=== PATIENT | female | born 1985 | race Two or more races ===

== ENCOUNTER 2017-02-05 00:32 | Emergency (ER) | payer OTHER ==
[~2017-02-05] VITALS: Ht 157.5 cm; Wt 85.2 kg
[~2017-02-05 00:32] MED LIST: AZIT250T PO; DAYQUIL; DICY20TA3 PO; GUAI600T38 PO; PRED20TA PO; PRED50TA PO; SIME80TA14 PO
--- NOTE | 2017-02-05 00:55 | PHYS DOC ---
Past History Past Medical History: No Pertinent History Past Surgical History: Tubal ligation, Other Smoking: Cigarettes Alcohol Use: None Drug Use: None Adult General Chief Complaint Chief Complaint: BODY/HEAD LICE HPI HPI 31-year-old female states she fell tonight and hit her head. She denies any loss of consciousness. She has does have a mild headache now but no lateralizing neurologic weakness. She states this happened approximately 4 hours prior to arrival. She denies any neck pain or radicular symptoms. [] Review of Systems Review of Systems Constitutional: Denies fever or chills [] Eyes: Denies change in visual acuity, redness, or eye pain [] HENT: Denies nasal congestion or sore throat [] Respiratory: Denies cough or shortness of breath [] Cardiovascular: No additional information not addressed in HPI [] GI: Denies abdominal pain, nausea, vomiting, bloody stools or diarrhea [] : Denies dysuria or hematuria [] Musculoskeletal: Denies back pain or joint pain [] Integument: Denies rash or skin lesions [] Neurologic: Per history of present illness [] Endocrine: Denies polyuria or polydipsia [] Allergies Allergies Allergies Coded Allergies Type Severity Reaction Last Updated Verified aspirin Allergy Severe SWELL 08/29/15 Yes ibuprofen Allergy Severe SWELL 08/29/15 Yes ketorolac Allergy Severe SWELL 08/29/15 Yes naproxen Allergy Severe SWELL 08/29/15 Yes fentanyl Allergy Intermediate itching 10/15/16 Yes kiwi Allergy Intermediate Itching 04/23/16 Yes Physical Exam Physical Exam Constitutional: Well developed, well nourished, no acute distress, non-toxic appearance. [] HENT: Mild tenderness left temporal region no swelling no ecchymosis no erythema no abrasion no laceration. [] Eyes: PERRLA, EOMI, conjunctiva normal, no discharge. [] Neck: Normal range of motion, no tenderness, supple, no stridor. [] Cardiovascular:Heart rate regular rhythm, no murmur [] Lungs & Thorax: Bilateral breath sounds clear to auscultation [] Abdomen: Bowel sounds normal, soft, no tenderness, no masses, no pulsatile masses. [] Skin: Warm, dry, no erythema, no rash. [] Back: No tenderness, no CVA tenderness. [] Extremities: No tenderness, no cyanosis, no clubbing, ROM intact, no edema. [] Neurologic: Alert and oriented X 3, normal motor function, normal sensory function, no focal deficits noted. [] Psychologic: Anxious. [] EKG EKG [] Radiology/Procedures Radiology/Procedures [] Course & Med Decision Making Course & Med Decision Making Pertinent Labs and Imaging studies reviewed. (See chart for details) [] Dragon Disclaimer Dragon Disclaimer This chart was dictated in whole or in part using Voice Recognition software in a busy, high-work load, and often noisy Emergency Department environment. It may contain unintended and wholly unrecognized errors or omissions. Departure Departure: Impression: Primary Impression: Head contusion Disposition: HOME, SELF-CARE Condition: STABLE Referrals: MOISÉS CARMEN (PCP) Patient Instructions: Head Injury, Adult Additional Instructions: Return to emergency department with any new or concerning symptoms Problem Qualifiers Primary Impression: Head contusion Encounter type: initial encounter Contusion of head detail: scalp Qualified Code: S00.03XA - Contusion of scalp, initial encounter RAFAELA DIAMOND DO Feb 05, 2017 00:55
[2017-02-05 01:30] VITALS: BP 132/82
== END 2017-02-05 01:30 | disposition home or self-care (01) ==
LOC: ER 00:32
DX: S00.83XA Contusion of other part of head, initial encounter (principal); F17.210 Nicotine dependence, cigarettes, uncomplicated; Z88.6 Allergy status to analgesic agent; Z88.8 Allergy status to other drugs, medicaments and biological substances; Z91.018 Allergy to other foods; W18.00XA Striking against unspecified object with subsequent fall, initial encounter; Y93.89 Activity, other specified; Y99.8 Other external cause status; Y92.89 Other specified places as the place of occurrence of the external cause
CPT/HCPCS: 99281; 99283

== ENCOUNTER 2017-04-08 13:18 | Emergency (ER) | payer OTHER ==
[~2017-04-08] VITALS: Ht 157.5 cm; Wt 85.2 kg
[~2017-04-08 13:18] MED LIST changes: -GUAI600T38 PO; +GUAI600T47 PO
[2017-04-08 13:20] VITALS: BP 132/82
--- NOTE | 2017-04-08 13:34 | PHYS DOC ---
General Chief Complaint: CHEST PAIN Stated Complaint: WEAKNESS Time Seen by MD: 13:19 Source: patient Exam Limitations: clinical condition Problems: History of Present Illness Initial Comments Pt is 31/F to ED with multiple complaints. Pt has history of Conversion disorder diagnosis, has seen two Neurologists no psychiatry evaluation. Pt states she had sudden worsening of her tremor, chest/back/arm/leg pain which starts in her spine then explodes outwardly to all her extremities. She thinks she may have been around too many people at [employer] today and became overwhelmed. Was having cp/sob, those sx now gone. Pt develops new complaints as others resolve quickly during our interview. Timing/Duration: 1-3 hours Severity: severe Modifying Factors: improves with other Associated Symptoms: chest pain, headaches, loss of appetite, malaise, nausea/ vomiting, shortness of breath, weakness, other Allergies: Coded Allergies: aspirin (Verified Allergy, Severe, SWELL, 08/29/15) ibuprofen (Verified Allergy, Severe, SWELL, 08/29/15) ketorolac (Verified Allergy, Severe, SWELL, 08/29/15) naproxen (Verified Allergy, Severe, SWELL, 08/29/15) fentanyl (Verified Allergy, Intermediate, itching, 10/15/16) kiwi (Verified Allergy, Intermediate, Itching, 04/23/16) Past Medical History Medical History: other (conversion disorder, migraine, asthma) Surgical History: noncontributory Social History Smoker: cigarettes Alcohol: none Drugs: none Review of Systems Constitutional: denies chills, denies diaphoresis, denies fever, malaise, weakness Respiratory: see HPI Cardiovascular: see HPI Gastrointestinal: see HPI Genitourinary: see HPI Musculoskeletal: see HPI Psychiatric/Neurological: see HPI Physical Exam General Appearance: WD/WN, severe distress (very dramatic, shaking, ) Eyes: bilateral eye normal inspection, bilateral eye PERRL, bilateral eye EOMI Ear, Nose, Throat: hearing grossly normal, normal ENT inspection, normal pharynx Neck: non-tender, supple Respiratory: normal breath sounds, no respiratory distress Cardiovascular: normal peripheral pulses, regular rate, rhythm Gastrointestinal: non tender, soft Back: no CVA tenderness, no vertebral tenderness Extremities: non-tender, normal inspection 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 PHYSICIAN: ONELIA MENDEZ DO REASON: cp PROCEDURE: PORTABLE CHEST 1V EXAM: CHEST 1 VIEW History: Chest pain COMPARISON: 10/15/2016 TECHNIQUE: Single portable radiograph of the chest FINDINGS: The cardiac silhouette is unremarkable. The lungs are clear bilaterally. The costophrenic sulci are clear and well demarcated. IMPRESSION: No radiographic evidence of an acute cardiopulmonary process. DICTATED AND SIGNED BY: ZAIRA LEWIS MD DATE: 04/08/17 1430 CC: MOISÉS CARMEN; ONELIA MENDEZ DO ~ K+ 3.4, UA +SE contamination, Advised to stop smoking. Overall reassuring workup. Pt did calm down. Resistant to psychiatry follow up , but did express understanding of treatment plan. Departure Time of Disposition: 16:42 Disposition: 01 HOME, SELF-CARE Diagnosis: conversion disorder, hypokalemia, UTI Condition: GOOD Patient Instructions: Conversion Disorder, Hypokalemia-Brief, Urinary Tract Infection, Iika-sg-Pwdy Additional Instructions: Work excuse a few days if needed. Aggressive hydration with gatorade, water. Eat one banana twice daily until doctor follow up. Rx: cipro, pyridium Take meds with food. You will need to follow up with psychiatry next available appointment for further mental health evaluation and treatment. The [address] [address] They have daily morning walk-in hours available or you may choose to call to schedule. Return to ED with new or changing symptoms. ONELIA MENDEZ DO April 08, 2017 13:34
[2017-04-08 14:02] LABS: BACTERIA,URINE FEW /HPF (0-FEW); BARBITURATES NEG (NEG); BENZODIAZEPINES NEG (NEG); BILIRUBIN,URINE NEG (NEG); CANNABINOIDS NEG (NEG); CLARITY,URINE CLOUDY; COCAINE NEG (NEG); COLOR,URINE YELLOW; GLUCOSE,URINE NEG (NEG); METHADONE NEG (NEG); NITRITE,URINE NEG (NEG); OPIATES POS (NEG); PHENCYCLIDINE NEG (NEG); UROBILINOGEN,URINE 0.2 mg/dL (0.2 mg/dL)
[2017-04-08 14:03] LABS: HYALINE CASTS, URINE OCC /HPF; SQUAMOUS EPITHELIAL CELL,UR MANY /LPF
[2017-04-08 14:12] LABS: AMPHETAMINE/METHAMPHETAMINE NEG (NEG)
--- NOTE | 2017-04-08 14:19 | EKG ---
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
--- NOTE | 2017-04-08 14:34 | RAD ---
EXAM: CHEST 1 VIEW History: Chest pain COMPARISON: 10/15/2016 TECHNIQUE: Single portable radiograph of the chest FINDINGS: The cardiac silhouette is unremarkable. The lungs are clear bilaterally. The costophrenic sulci are clear and well demarcated. IMPRESSION: No radiographic evidence of an acute cardiopulmonary process.
[2017-04-08] MEDS ORDERED: IV NORMAL SALINE 1,000ML 1,000 ML IV SCH (14:35)
[2017-04-08] MEDS ORDERED: LORazepam 2 MG/ML VIAL IV ONE (14:35)
[2017-04-08] MEDS ORDERED: diphenhydrAMINE 50 MG/ML VIAL ONE (15:15)
[2017-04-08 16:09] LABS: BASO # 0.1 x10^3/uL (0.0-0.2); BASO % 1 % (0-3); EOS # 0.2 x10^3/uL (0.0-0.7); EOS % 3 % (0-3); HEMATOCRIT 38.5 % (36.0-47.0); HEMOGLOBIN 13.1 g/dL (12.0-15.5); LYMPH # 2.1 x10^3/uL (1.0-4.8); LYMPH % 26 % (24-48); MEAN CORPUSCULAR HEMOGLOBIN 30 pg (25-35); MEAN CORPUSCULAR HGB CONC 34 g/dL (31-37); MEAN CORPUSCULAR VOLUME 89 fL (79-100); MONO # 0.5 x10^3/uL (0.0-1.1); MONO % 6 % (0-9); NEUT # 5.1 x10^3uL (1.8-7.7); NEUT % 64 % (31-73); PLATELET COUNT 186 x10^3/uL (140-400); RED BLOOD COUNT 4.34 x10^6/uL (3.50-5.40); RED CELL DISTRIBUTION WIDTH 13.4 % (11.5-14.5)
[2017-04-08 16:24] LABS: ALBUMIN 3.5 g/dL (3.4-5.0); CALCIUM 8.2 mg/dL (8.5-10.1); GFR 65.6; MAGNESIUM 1.9 mg/dL (1.8-2.4); POTASSIUM 3.4 mmol/L (3.5-5.1); TOTAL BILIRUBIN 0.2 mg/dL (0.2-1.0)
[2017-04-08] MEDS ORDERED: PHEN100T82 PO (16:50)
[2017-04-08] MEDS ORDERED: CIPR500T94 PO (16:50)
[2017-04-08] MEDS ORDERED: POTASSIUM CHLORIDE 20 MEQ TABLET.ER. PO ONE (17:00)
[2017-04-08] MEDS ORDERED: PHENAZOPYRIDINE 100 MG TABLET. PO ONE (17:00)
[2017-04-08] MEDS ORDERED: CIPROFLOXACIN HCL 500 MG TABLET PO ONE (17:00)
== END 2017-04-08 16:50 | disposition home or self-care (01) ==
LOC: ER 13:18
DX: F44.4 Conversion disorder with motor symptom or deficit (principal); N39.0 Urinary tract infection, site not specified; E87.6 Hypokalemia; F17.210 Nicotine dependence, cigarettes, uncomplicated; J45.909 Unspecified asthma, uncomplicated; G43.909 Migraine, unspecified, not intractable, without status migrainosus; Z88.6 Allergy status to analgesic agent; Z88.8 Allergy status to other drugs, medicaments and biological substances; Z91.018 Allergy to other foods
CPT/HCPCS: 36415; 71010; 80053; 80305; 80320; 81001; 82550; 83735; 84484; 85027; 87086; 93005; 96361; 96374; 99285; J2060; G0480; G0481; J7030

== ENCOUNTER 2017-09-24 08:53 | Emergency (ER) | payer OTHER ==
[~2017-09-24 08:53] MED LIST changes: +CIPR500T94 PO; +PHEN100T82 PO
--- NOTE | 2017-09-24 09:27 | PHYS DOC ---
General Chief Complaint: BACK PAIN OR INJURY Stated Complaint: BACK PAIN Time Seen by MD: 08:54 Source: patient, old records Exam Limitations: no limitations Problems: History of Present Illness Initial Comments Patient is a 32-year-old female well-known to this facility with report of fall injury. Patient states that last night she fell backwards due to "yelling at my son" stating that she hit the back of her head on the ground causing pain at her posterior occiput. She denies any loss of consciousness no nausea vomiting, states she did have some photophobia and blurred vision. She states that today her head pain is worse and states that today she has discomfort ranging from the bottom of her head down to the bottom of her spine. She says she has pain running down her posterior left leg. She was observed by registration to ambulate without difficulty from the parking lot up to the registration desk. At the registration desk she reported that she was unable to walk with leg weakness and a wheelchair was procured for her use. PCP is Lu Toro, patient states that she called her office and was referred to the emergency Department due to the nature of her complaints. Occurred: yesterday Severity: severe Injuries/Pain Location: head, neck, back Context: other Loss of Consciousness: no loss of consciousness Modifying Factors: worse with jarring, worse with movement, improves with pain medication, improves with rest Associated Symptoms: headache, trouble walking, other Allergies: Coded Allergies: aspirin (Verified Allergy, Severe, SWELL, 08/29/15) ibuprofen (Verified Allergy, Severe, SWELL, 08/29/15) ketorolac (Verified Allergy, Severe, SWELL, 08/29/15) naproxen (Verified Allergy, Severe, SWELL, 08/29/15) fentanyl (Verified Allergy, Intermediate, itching, 10/15/16) kiwi (Verified Allergy, Intermediate, Itching, 04/23/16) Past Medical History Medical History: other (conversion disorder, migraines, asthma, gestational diabetes, GERD) Surgical History: noncontributory LMP (Females 10-50): September 14 Social History Smoker: cigarettes Alcohol: none Drugs: none Review of Systems Constitutional: denies chills, denies diaphoresis, denies fever, malaise Eyes: denies blindness, blurred vision, denies inflammation, denies photophobia Ears, Nose, Mouth, Throat: denies ear discharge, denies nose discharge, denies epistaxis Respiratory: denies cough, denies shortness of breath, denies wheezing Cardiovascular: denies chest pain, denies palpitations, denies syncope Gastrointestinal: denies abdominal pain, denies nausea, denies vomiting Musculoskeletal: see HPI Psychiatric/Neurological: see HPI Physical Exam General Appearance: no apparent distress (very dramatic) Head: no evidence of injury (normocephalic atraumatic negative Villeda sign negative raccoon eyes no evidence of trauma) Eyes: bilateral eye normal inspection, bilateral eye PERRL, bilateral eye EOMI Ears, Nose, Mouth, Throat: hearing grossly normal, no evidence of ENT injury, no dental injury (no ear or nose discharge no fluid behind TMs bilaterally) Neck: full range of motion (diffuse lateral and midline tenderness no palpable deformity) Cardiovascular/Respiratory: normal peripheral pulses, normal breath sounds, no respiratory distress Gastrointestinal: non tender, soft Back: normal inspection, no CVA tenderness, no vertebral tenderness Extremities: no evidence of injury, normal range of motion, non-tender, pelvis stable 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 PHYSICIAN: ONELIA MENDEZ DO REASON: fall to occiput, head/neck pain PROCEDURE: CT HEAD AND CERVICAL SPINE WO CT of the head without contrast, 09/24/2017: History: Fall, head and neck pain Noncontrast scans were obtained and compared to a study from 03/12/2016. The ventricles are within normal limits in size. There is no shift of the midline structures. There is no evidence of acute intracranial hemorrhage or mass effect. IMPRESSION: The CT of the head without contrast reveals no significant abnormality. CT of the cervical spine without contrast, 09/24/2017: No fracture or dislocation is identified. There are minimal scattered marginal spurs. The posterior disc margins are poorly delineated due to artifacts. No significant bony central spinal or foraminal stenosis is identified. IMPRESSION: No acute cervical spine abnormality is detected. PQRS Compliance Statement: One or more of the following individualized dose reduction techniques were utilized for this examination: 1. Automated exposure control 2. Adjustment of the mA and/or kV according to patient size 3. Use of iterative reconstruction technique DICTATED AND SIGNED BY: CARMEN GIFFORD MD DATE: 09/24/17 1013 CC: MOISÉS CARMEN; ONELIA MENDEZ DO ~ Labs unremarkable I contacted Lu Toro by phone and discussed the patient with her at length. She is in agreement symptoms likely from her conversion disorder. I discussed the treatment plan she is in agreement and will see the patient in follow-up tomorrow. I discussed this with the patient and her mother, specifically that no acute cause for her symptoms which started at the registration desk were evident from today's evaluation. I discussed prescription and [id number] medications and close outpatient follow-up. She expressed agreement and understanding. Departure Time of Disposition: 10:55 Disposition: 01 HOME, SELF-CARE Diagnosis: concussion, fall, strain, conversion disorder Condition: GOOD Patient Instructions: Cervical Strain and Sprain with Rehab-SportsMed, Concussion and Brain Injury, [id number] Additional Instructions: No exercise or strenuous activity until cleared by your doctor. Aggressive hydration with Gatorade and water. After 48 hours began using heating pad 15-20 minutes at a time 4-6 times daily followed by gentle stretching. Continue current medications. Kzpw-vho-[id number] Tylenol as needed for baseline discomfort. Prescription: [place] 5 mg quantity 5 (do not take with Tylenol) Follow-up with your doctor on Sunday for recheck and further activity restriction modifications. Return to ED with new or changing symptoms. ONELIA MENDEZ DO Sep 24, 2017 09:27
[2017-09-24] MEDS ORDERED: ACETAMINOPHEN 325 MG TABLET PO ONE (09:30)
[2017-09-24 09:54] LABS: BASO # 0.1 x10^3/uL (0.0-0.2); BASO % 1 % (0-3); EOS # 0.3 x10^3/uL (0.0-0.7); EOS % 4 % (0-3); HEMATOCRIT 43.7 % (36.0-47.0); HEMOGLOBIN 14.9 g/dL (12.0-15.5); LYMPH # 2.1 x10^3/uL (1.0-4.8); LYMPH % 30 % (24-48); MEAN CORPUSCULAR HEMOGLOBIN 30 pg (25-35); MEAN CORPUSCULAR HGB CONC 34 g/dL (31-37); MEAN CORPUSCULAR VOLUME 89 fL (79-100); MONO # 0.4 x10^3/uL (0.0-1.1); MONO % 6 % (0-9); NEUT # 4.1 x10^3uL (1.8-7.7); NEUT % 59 % (31-73); PLATELET COUNT 269 x10^3/uL (140-400); RED BLOOD COUNT 4.91 x10^6/uL (3.50-5.40); RED CELL DISTRIBUTION WIDTH 13.6 % (11.5-14.5)
[2017-09-24 10:08] LABS: CALCIUM 9.4 mg/dL (8.5-10.1); CREATININE 0.9 mg/dL (0.6-1.0); GFR 73.5
--- NOTE | 2017-09-24 10:20 | RAD ---
CT of the head without contrast, 09/24/2017: History: Fall, head and neck pain Noncontrast scans were obtained and compared to a study from 03/12/2016. The ventricles are within normal limits in size. There is no shift of the midline structures. There is no evidence of acute intracranial hemorrhage or mass effect. IMPRESSION: The CT of the head without contrast reveals no significant abnormality. CT of the cervical spine without contrast, 09/24/2017: No fracture or dislocation is identified. There are minimal scattered marginal spurs. The posterior disc margins are poorly delineated due to artifacts. No significant bony central spinal or foraminal stenosis is identified. IMPRESSION: No acute cervical spine abnormality is detected. PQRS Compliance Statement: One or more of the following individualized dose reduction techniques were utilized for this examination: 1. Automated exposure control 2. Adjustment of the mA and/or kV according to patient size 3. Use of iterative reconstruction technique
[2017-09-24] MEDS ORDERED: HYDR-971 PO ×2 (10:54→11:12)
[2017-09-24 11:24] VITALS: BP 148/87
== END 2017-09-24 11:24 | disposition home or self-care (01) ==
LOC: ER 08:53
DX: S06.0X9A Concussion with loss of consciousness of unspecified duration, initial encounter (principal); S16.1XXA Strain of muscle, fascia and tendon at neck level, initial encounter; F44.4 Conversion disorder with motor symptom or deficit; K21.9 Gastro-esophageal reflux disease without esophagitis; J45.909 Unspecified asthma, uncomplicated; G43.909 Migraine, unspecified, not intractable, without status migrainosus; F17.210 Nicotine dependence, cigarettes, uncomplicated; Z88.6 Allergy status to analgesic agent; Z88.8 Allergy status to other drugs, medicaments and biological substances; Z91.018 Allergy to other foods; W18.09XA Striking against other object with subsequent fall, initial encounter; Y93.89 Activity, other specified; Y99.8 Other external cause status; Y92.89 Other specified places as the place of occurrence of the external cause
CPT/HCPCS: 36415; 70450; 72125; 80048; 82550; 85025; 99285-25

== ENCOUNTER 2017-11-06 19:45 | Emergency (ER) | payer OTHER ==
[~2017-11-06] VITALS: Ht 157.5 cm; Wt 85.2 kg
[~2017-11-06 19:45] MED LIST changes: +HYDR-971 PO
[2017-11-06 19:47] VITALS: BP 141/87
--- NOTE | 2017-11-06 19:49 | ED.ADGEN ---
Past History Past Medical History: No Pertinent History, GERD, Migraines Past Surgical History: Tubal ligation, Other Smoking: Cigarettes Alcohol Use: None Drug Use: None Adult General Chief Complaint Chief Complaint " I was taking on my phone and was turning.. and then fell.. on my Rt. side...' [facility] HPI Patient is a 32 year old female who presents with above hx of fall and complaints of Rt. shoulder, elbow, cervical and back pain. Pt. has multiple allergies to meds. and can only take tylenol for pain. No loss of consciousness reported. Distal neurovascular intact. Patient attempt without problems. Review of Systems Review of Systems Constitutional: Denies fever or chills [] Eyes: Denies change in visual acuity, redness, or eye pain [] HENT: Denies nasal congestion or sore throat [] Respiratory: Denies cough or shortness of breath [] Cardiovascular: No additional information not addressed in HPI [] GI: Denies abdominal pain, nausea, vomiting, bloody stools or diarrhea [] : Denies dysuria or hematuria [] Musculoskeletal: Complaints of right shoulder elbow, neck ,back pain and joint pain [] Integument: Denies rash or skin lesions [] Neurologic: Denies headache, focal weakness or sensory changes [] Endocrine: Denies polyuria or polydipsia [] All other systems were reviewed and found to be within normal limits, except as documented in this note. Family History Family History Noncontributory Current Medications Current Medications Current Medications Medications (Trade) Dose Ordered Sig/[facility] Start Time Stop Time Status Last Admin Dose Admin Acetaminophen (Tylenol) 1,000 mg 1X ONCE 11/06/17 21:00 11/06/17 21:01 DC 11/06/17 21:08 1,000 MG See nursing for home meds Allergies Allergies Allergies Coded Allergies Type Severity Reaction Last Updated Verified aspirin Allergy Severe SWELL 08/29/15 Yes ibuprofen Allergy Severe SWELL 08/29/15 Yes ketorolac Allergy Severe SWELL 08/29/15 Yes naproxen Allergy Severe SWELL 08/29/15 Yes fentanyl Allergy Intermediate itching 10/15/16 Yes kiwi Allergy Intermediate Itching 04/23/16 Yes Physical Exam Physical Exam Constitutional: Well developed, well nourished, in mild distress, non-toxic appearance. [] HENT: Normocephalic, atraumatic, bilateral external ears normal, oropharynx moist, no oral exudates, nose normal. Right. Trapezius muscle spasm Eyes: PERRLA, EOMI, conjunctiva normal, no discharge. [] Neck: Normal range of motion, no tenderness, supple, no stridor. [] Cardiovascular:Heart rate regular rhythm, no murmur [] Lungs & Thorax: Bilateral breath sounds clear to auscultation [] Abdomen: Bowel sounds normal, soft, no tenderness, no masses, no pulsatile masses. [] Skin: Warm, dry, no erythema, no rash. [] Back: No tenderness, no CVA tenderness. [] Extremities: Right shoulder tenderness, no cyanosis, no clubbing, ROM intact, no edema. [] Neurologic: Alert and oriented X 3, normal motor function, normal sensory function, no focal deficits noted. DTRs +2 at patella and brachial. Distal sensation intact. Psychologic: Affect anxious, judgement normal, mood normal. [] Current Patient Data Vital Signs Vital Signs Date Time Temp Pulse Resp B/P (MAP) Pulse Ox O2 Delivery O2 Flow Rate FiO2 11/06/17 19:47 98.3 96 20 96 Room Air Lab Results Laboratory Tests Test 11/06/17 21:50 POC Urine HCG, Qualitative hcg negative (Negative) EKG EKG [] Radiology/Procedures Radiology/Procedures My interpretation of CXR, Shoulder and Elbow Rt. show no fx. CT shows no fx or dislocation.[] Course & Med Decision Making Course & Med Decision Making Pertinent Labs and Imaging studies reviewed. (See chart for details) Ice packs as needed. Tylenol for pain. Follow up with primary. [] Final Impression Final Impression 1. Contusion[] 2. Fall 3. Shoulder Sprain Problems: Dragon Disclaimer Dragon Disclaimer This electronic medical record was generated, in whole or in part, using a voice recognition dictation system. JORGE LUIS SALES MD Nov 06, 2017 19:49
[2017-11-06] MEDS ORDERED: ACETAMINOPHEN 500 MG TABLET PO ONE (21:00)
--- NOTE | 2017-11-06 21:54 | RAD ---
CT C-Spine without contrast: Clinical History: Fall, neck pain - mostly on the right side of neck
Technique: Axial helical images of the cervical spine were obtained without contrast, axial coronal and sagittal reconstruction was performed. Findings: There is no loss of vertebral body stature. There is no prevertebral soft tissue swelling. The vertebral bodies are well aligned. The C1-C2 relationship is normal. The visualized osseous structures appear normal. There is straightening of the normal cervical lordosis which can be positional or can be secondary to muscle spasm. Evaluation of the central canal is limited without contrast. Impression: No acute findings. Clinical correlation suggested. PQRS Compliance Statement: One or more of the following individualized dose reduction techniques were utilized for this examination: 1. Automated exposure control 2. Adjustment of the mA and/or kV according to patient size 3. Use of iterative reconstruction technique Electronically signed by: Fernando Richmond III, MD (11/06/2017 9:50 PM) [facility]
--- NOTE | 2017-11-07 07:45 | RAD ---
Indication: Fall, elbow pain. Technique: 3 views of the right elbow are submitted for review. No comparison is available. Findings: Only apparent on the oblique view is potential cortical step-off in a supracondylar location. However, there is no displacement of fat pads/joint effusion. An additional potential fracture is not apparent. There is no dislocation. Impression: Questionable cortical step-off in a supracondylar location. However, definite fracture line is not apparent and this cortical stepoff is only apparent on one of 3 views. If there is concern for an occult supracondylar fracture, consider CT or MRI.
--- NOTE | 2017-11-07 07:45 | RAD ---
Indication: Fall, right shoulder pain. Technique: 3 views of the right shoulder are submitted for review. No comparison is available. Findings: There is no fracture or dislocation. There is no osseous lesion. Impression: Negative for fracture.
--- NOTE | 2017-11-07 07:46 | RAD ---
Indication: Pain after a fall Technique: Two-view chest radiograph was obtained. Comparison is from April 08, 2017. Findings: The lungs are clear. The cardiopulmonary silhouette is within normal limits. There is no pleural effusion. The bony structures are intact. Impression: No acute thoracic findings.
== END 2017-11-06 22:36 | disposition home or self-care (01) ==
LOC: ER 19:45
DX: S43.401A Unspecified sprain of right shoulder joint, initial encounter (principal); S50.01XA Contusion of right elbow, initial encounter; S10.83XA Contusion of other specified part of neck, initial encounter; S20.222A Contusion of left back wall of thorax, initial encounter; S20.221A Contusion of right back wall of thorax, initial encounter; K21.9 Gastro-esophageal reflux disease without esophagitis; G43.909 Migraine, unspecified, not intractable, without status migrainosus; F17.210 Nicotine dependence, cigarettes, uncomplicated; Z88.6 Allergy status to analgesic agent; Z88.4 Allergy status to anesthetic agent; Z88.8 Allergy status to other drugs, medicaments and biological substances; Z91.018 Allergy to other foods; W19.XXXA Unspecified fall, initial encounter; Y93.89 Activity, other specified; Y99.8 Other external cause status; Y92.89 Other specified places as the place of occurrence of the external cause
CPT/HCPCS: 71020; 72125; 73030; 73080; 81025; 99284-25

== ENCOUNTER 2018-05-26 12:23 | Emergency (ER) | payer OTHER ==
[~2018-05-26] VITALS: Ht 157.5 cm; Wt 93.0 kg
--- NOTE | 2018-05-26 12:58 | RAD ---
EXAM: Head and cervical spine CT without contrast. HISTORY: Left-sided numbness and weakness. TECHNIQUE: Computed tomographic images of the head and cervical spine were obtained without contrast. *One or more of the following individualized dose reduction techniques were utilized for this examination: 1. Automated exposure control. 2. Adjustment of the mA and/or kV according to patient size. 3. Use of iterative reconstruction technique. COMPARISON: 09/24/2017. FINDINGS: Head: There is no hemorrhage. There is no mass effect or midline shift. There is no hydrocephalus. The jacques-white matter differentiation pattern is intact. No suspicious calvarial lesion is seen. The orbits, paranasal sinuses mastoid air cells are unremarkable. Cervical spine: There is no listhesis. The vertebral bodies are normal in height and the disc spaces are preserved. There is no suspicious osseous lesion. There is no significant foraminal or central canal stenosis. There are bilateral cervical ribs. There are multiple prominent neck lymph nodes. These are not clearly pathologically enlarged. IMPRESSION: 1. No acute intracranial finding or acute cervical spine finding. 2. No evidence of significant cervical neural foraminal or central canal stenoses. 3. Bilateral cervical ribs. 4. Note is made that the patient reports a history of a carotid artery aneurysm. This is not clearly seen on this noncontrast exam. A CT angiogram can be performed for evaluation of clinically indicated. Findings were discussed with Dr. Myles in the ED at 1250 hours on 05/26/2018 according to code stroke protocol. Electronically signed by: Maryann Zhang MD (05/26/2018 12:55 PM) [facility]
--- NOTE | 2018-05-26 13:11 | RAD ---
EXAM: Chest, single view. HISTORY: Chest pain. COMPARISON: 11/06/2017 FINDINGS: A frontal view of the chest is obtained. There is no infiltrate, pleural effusion or pneumothorax. The heart is normal in size. IMPRESSION: No acute pulmonary finding. Electronically signed by: Maryann Zhang MD (05/26/2018 1:08 PM) [facility]
[2018-05-26 13:28] LABS: BASO # 0.1 x10^3/uL (0.0-0.2); BASO % 1 % (0-3); EOS # 0.2 x10^3/uL (0.0-0.7); EOS % 3 % (0-3); HEMATOCRIT 40.6 % (36.0-47.0); HEMOGLOBIN 13.9 g/dL (12.0-15.5); LYMPH # 1.9 x10^3/uL (1.0-4.8); LYMPH % 28 % (24-48); MEAN CORPUSCULAR HEMOGLOBIN 31 pg (25-35); MEAN CORPUSCULAR HGB CONC 34 g/dL (31-37); MEAN CORPUSCULAR VOLUME 90 fL (79-100); MONO # 0.4 x10^3/uL (0.0-1.1); MONO % 6 % (0-9); NEUT # 4.2 x10^3uL (1.8-7.7); NEUT % 61 % (31-73); PLATELET COUNT 253 x10^3/uL (140-400); RED CELL DISTRIBUTION WIDTH 13.4 % (11.5-14.5); WHITE BLOOD COUNT 6.8 x10^3/uL (4.0-11.0)
[2018-05-26 13:47] LABS: AMPHETAMINE/METHAMPHETAMINE NEG (NEG); BARBITURATES NEG (NEG); BENZODIAZEPINES POS (NEG); CANNABINOIDS NEG (NEG); COCAINE NEG (NEG); METHADONE NEG (NEG); OPIATES NEG (NEG); PHENCYCLIDINE NEG (NEG)
[2018-05-26 13:55] LABS: ALBUMIN 3.8 g/dL (3.4-5.0); ALK PHOS 72 U/L (46-116); ALT (SGPT) 74 U/L (14-59); ANION GAP 7 (6-14); AST (SGOT) 53 U/L (15-37); BLOOD UREA NITROGEN 7 mg/dL (7-20); BUN/CREATININE RATIO 10 (6-20); CALCIUM 9.2 mg/dL (8.5-10.1); CARBON DIOXIDE 27 mmol/L (21-32); CHLORIDE 103 mmol/L (98-107); CREATININE 0.7 mg/dL (0.6-1.0); GFR 98.3; GLUCOSE 114 mg/dL (70-99); LIPASE 93 U/L (73-393); POTASSIUM 3.8 mmol/L (3.5-5.1); SODIUM 137 mmol/L (136-145); TOTAL BILIRUBIN 0.2 mg/dL (0.2-1.0); TOTAL PROTEIN 7.6 g/dL (6.4-8.2)
--- NOTE | 2018-05-26 14:04 | EKG ---
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
[2018-05-26 14:25] VITALS: BP 113/54
--- NOTE | 2018-05-26 14:25 | PHYS DOC ---
Past History Past Medical History: Anxiety, Other Past Surgical History: Tubal ligation Smoking: Cigarettes Alcohol Use: None Drug Use: None Adult General Chief Complaint Chief Complaint: CHEST PAIN [facility] HPI Patient is a [32] year old [female] brought in by EMS because of chest pain. Patient states she was sitting at [employer] and felt sudden onset of left sided chest pain as a sharp pain with shortness of breath, nausea, dizziness and numbness of her hands. Patient rated her pain 10 over 10 and states the pain lasts about an hour and half. Patient also complaining of increasing chronic left upper and lower extremity weakness at the same time with chest pain like her previous episodes of intermittent episodes of left-sided weakness she has had after she diagnosed in 2017 with left carotid aneurysm. Patient has history of schizophrenia and denies hypertension, dyslipidemia, diabetes, smoking, family history of coronary artery disease. Review of Systems Review of Systems Constitutional: Denies fever or chills [] Eyes: Denies change in visual acuity, redness, or eye pain [] HENT: Denies nasal congestion or sore throat [] Respiratory: With cough and shortness of breath] Cardiovascular: No additional information not addressed in HPI [] GI: Denies abdominal pain, nausea, vomiting, bloody stools or diarrhea [] : Denies dysuria or hematuria [] Musculoskeletal: Denies back pain or joint pain [] Integument: Denies rash or skin lesions [] Neurologic: Denies headache, reports weakness or sensory changes [] Endocrine: Denies polyuria or polydipsia [] All other systems were reviewed and found to be within normal limits, except as documented in this note. Allergies Allergies Allergies Coded Allergies Type Severity Reaction Last Updated Verified aspirin Allergy Severe SWELL 08/29/15 Yes ibuprofen Allergy Severe SWELL 08/29/15 Yes ketorolac Allergy Severe SWELL 08/29/15 Yes naproxen Allergy Severe SWELL 08/29/15 Yes fentanyl Allergy Intermediate itching 10/15/16 Yes kiwi Allergy Intermediate Itching 04/23/16 Yes Physical Exam Physical Exam Constitutional: Well nourished, distress, non-toxic appearance. [] HENT: Normocephalic, atraumatic, oropharynx moist, no oral exudates, nose normal. [] Eyes: PERRLA, EOMI, conjunctiva normal, no discharge. [] Neck: Normal range of motion, no tenderness, supple, no stridor, no carotid abnormality Cardiovascular:Heart rate regular rhythm, no murmur, reproducible substernal chest pain[] Lungs & Thorax: Bilateral breath sounds clear to auscultation [] Abdomen: Bowel sounds normal, soft, no tenderness, no masses, no pulsatile masses. [] Skin: Warm, dry, no erythema, no rash. [] Back: No tenderness, no CVA tenderness. [] Extremities: No tenderness, no cyanosis, no clubbing, ROM intact, no edema. [] Neurologic: Alert and oriented X 3, normal motor function, normal sensory function, no focal deficits noted, NIH scale of 0. [] Psychologic: Affect anxious, judgement normal, mood normal. [] Current Patient Data Vital Signs Vital Signs Date Time Temp Pulse Resp B/P (MAP) Pulse Ox O2 Delivery O2 Flow Rate FiO2 05/26/18 12:25 97.8 81 20 96 Room Air Lab Results Laboratory Tests Test 05/26/18 12:37 05/26/18 13:10 05/26/18 13:20 POC Urine HCG, Qualitative hcg negative (Negative) White Blood Count 6.8 x10^3/uL (4.0-11.0) Red Blood Count 4.50 x10^6/uL (3.50-5.40) Hemoglobin 13.9 g/dL (12.0-15.5) Hematocrit 40.6 % (36.0-47.0) Mean Corpuscular Volume 90 fL (79-100) Mean Corpuscular Hemoglobin 31 pg (25-35) Mean Corpuscular Hemoglobin Concent 34 g/dL (31-37) Red Cell Distribution Width 13.4 % (11.5-14.5) Platelet Count 253 x10^3/uL (140-400) Neutrophils (%) (Auto) 61 % (31-73) Lymphocytes (%) (Auto) 28 % (24-48) Monocytes (%) (Auto) 6 % (0-9) Eosinophils (%) (Auto) 3 % (0-3) Basophils (%) (Auto) 1 % (0-3) Neutrophils # (Auto) 4.2 x10^3uL (1.8-7.7) Lymphocytes # (Auto) 1.9 x10^3/uL (1.0-4.8) Monocytes # (Auto) 0.4 x10^3/uL (0.0-1.1) Eosinophils # (Auto) 0.2 x10^3/uL (0.0-0.7) Basophils # (Auto) 0.1 x10^3/uL (0.0-0.2) Prothrombin Time 11.5 SEC (9.4-11.4) H Prothrombin Time INR 1.1 (0.9-1.1) PTT 27 SEC (23-33) Sodium Level 137 mmol/L (136-145) Potassium Level 3.8 mmol/L (3.5-5.1) Chloride Level 103 mmol/L (98-107) Carbon Dioxide Level 27 mmol/L (21-32) Anion Gap 7 (6-14) Blood Urea Nitrogen 7 mg/dL (7-20) Creatinine 0.7 mg/dL (0.6-1.0) Estimated GFR (Cockcroft-Gault) 98.3 BUN/Creatinine Ratio 10 (6-20) Glucose Level 114 mg/dL (70-99) H Calcium Level 9.2 mg/dL (8.5-10.1) Magnesium Level 2.0 mg/dL (1.8-2.4) Total Bilirubin 0.2 mg/dL (0.2-1.0) Aspartate Amino Transferase (AST) 53 U/L (15-37) H Alanine Aminotransferase (ALT) 74 U/L (14-59) H Alkaline Phosphatase 72 U/L (46-116) Creatine Kinase 130 U/L (26-192) Creatine Kinase MB (Mass) < 0.5 ng/mL (0.0-3.6) Creatine Kinase MB Relative Index 0.4 % (0-4) Troponin I Quantitative < 0.017 ng/mL (0-0.055) RW-Olt-O-Type Natriuretic Peptide 16 pg/mL (0-124) Total Protein 7.6 g/dL (6.4-8.2) Albumin 3.8 g/dL (3.4-5.0) Albumin/Globulin Ratio 1.0 (1.0-1.7) Lipase 93 U/L (73-393) Urine Opiates Screen Neg (NEG) Urine Methadone Screen Neg (NEG) Urine Barbiturates Neg (NEG) Urine Phencyclidine Screen Neg (NEG) Urine Amphetamine/Methamphetamine Neg (NEG) Urine Benzodiazepines Screen Pos (NEG) Urine Cocaine Screen Neg (NEG) Urine Cannabinoids Screen Neg (NEG) Urine Ethyl Alcohol Neg (NEG) EKG EKG EKG interpreted by me. EKG at 1232 showed normal sinus rhythm at rate of 84, no acute ST and T-wave abnormalities[] Radiology/Procedures Radiology/Procedures [][address] [address] IMAGING REPORT Signed PATIENT: NARA CARSON ACCOUNT: [id number] : 1985 LOCATION: ER AGE: 32 SEX: F EXAM STATUS: REG ER ORD. PHYSICIAN: ROSALINDA GALLEGOS MD REASON: history of left carotid A aneurysm PROCEDURE: DOPPLER CAROTID BILAT EXAM: Carotid Doppler sonogram. HISTORY: Left common carotid artery aneurysm. TECHNIQUE: Lizarraga scale and color Doppler sonographic evaluation of the neck with spectral waveform analysis was performed and static images are submitted for review. FINDINGS: There is intimal thickening within the left common carotid artery. The peak systolic velocity within the right common carotid artery is 97 cm/sec. The peak systolic velocity within the right internal carotid artery is 85 cm/sec and the end diastolic velocity within the right internal carotid artery is 44 cm/sec. The right ICA/CCA ratio is 0.92. The peak systolic velocity within the left common carotid artery is 124 cm/sec. The peak systolic velocity within the left internal carotid artery is 99 cm/sec and the end diastolic velocity within the left internal carotid artery is 45 cm/sec. The left ICA/CCA ratio is 1.06. There is normal antegrade flow within both vertebral arteries. IMPRESSION: 1. Elevated and diastolic velocities within the internal carotid arteries. This can be seen with 50-69 percent stenosis. However, the peak systolic velocities within the internal carotid artery suggests less than 50 percent stenosis. 2. No sonographic evidence of a reported common carotid artery aneurysm. This can be better assessed with a CT angiogram or MR angiogram if clinically indicated. PQRS Compliance Statement - Stenosis calculations for CT, MR and conventional angiography are based upon measurement of the distal ICA diameter in accordance with the NASCET methodology. Stenosis calculations for carotid ultrasound studies are derived from validated velocity criteria which are known to correlate with the NASCET methodology. Electronically signed by: Marynan Martines MD (05/26/2018 2:31 PM) [facility] DICTATED AND SIGNED BY: MARYANN MARTINES MD DATE: 05/26/18 1429 CC: ROSALINDA GALLEGOS MD; [facility] [address] ~ [place] [address] IMAGING REPORT Signed PATIENT: NARA CARSON ACCOUNT: [id number] : 1985 LOCATION: ER AGE: 32 SEX: F EXAM STATUS: REG ER ORD. PHYSICIAN: ROSALINDA GALLEGOS MD REASON: left side weakness PROCEDURE: CT HEAD AND CERVICAL SPINE WO EXAM: Head and cervical spine CT without contrast. HISTORY: Left-sided numbness and weakness. TECHNIQUE: Computed tomographic images of the head and cervical spine were obtained without contrast. *One or more of the following individualized dose reduction techniques were utilized for this examination: 1. Automated exposure control. 2. Adjustment of the mA and/or kV according to patient size. 3. Use of iterative reconstruction technique. COMPARISON: 09/24/2017. FINDINGS: Head: There is no hemorrhage. There is no mass effect or midline shift. There is no hydrocephalus. The lizarraga-white matter differentiation pattern is intact. No suspicious calvarial lesion is seen. The orbits, paranasal sinuses mastoid air cells are unremarkable. Cervical spine: There is no listhesis. The vertebral bodies are normal in height and the disc spaces are preserved. There is no suspicious osseous lesion. There is no significant foraminal or central canal stenosis. There are bilateral cervical ribs. There are multiple prominent neck lymph nodes. These are not clearly pathologically enlarged. IMPRESSION: 1. No acute intracranial finding or acute cervical spine finding. 2. No evidence of significant cervical neural foraminal or central canal stenoses. 3. Bilateral cervical ribs. 4. Note is made that the patient reports a history of a carotid artery aneurysm. This is not clearly seen on this noncontrast exam. A CT angiogram can be performed for evaluation of clinically indicated. Findings were discussed with Dr. Gallegos in the ED at 1250 hours on 05/26/2018 according to code stroke protocol. Electronically signed by: Maryann Martines MD (05/26/2018 12:55 PM) [facility] DICTATED AND SIGNED BY: MARYANN MARTINES MD DATE: 05/26/18 3194 CC: ROSALINDA GALLEGOS MD; [facility] [address] ~ [place] [address] IMAGING REPORT Signed PATIENT: NARA CARSON ACCOUNT: [id number] : 1985 LOCATION: ER AGE: 32 SEX: F EXAM STATUS: REG ER ORD. PHYSICIAN: ROSALINDA GALLEGOS MD REASON: chest pain PROCEDURE: PORTABLE CHEST 1V EXAM: Chest, single view. HISTORY: Chest pain. COMPARISON: 11/06/2017 FINDINGS: A frontal view of the chest is obtained. There is no infiltrate, pleural effusion or pneumothorax. The heart is normal in size. IMPRESSION: No acute pulmonary finding. Electronically signed by: Maryann Martines MD (05/26/2018 1:08 PM) [facility] DICTATED AND SIGNED BY: MARYANN MARTINES MD DATE: 05/26/18 1305 CC: ROSALINDA GALLEGOS MD; [facility] ~ Course & Med Decision Making Course & Med Decision Making Pertinent Labs and Imaging studies reviewed. (See chart for details) Evaluation of patient in ER showed 5-year-old male patient with complaining of chest pain and left-sided weakness and states she had history of cardiac aneurysm last year. Code stroke was activated and patient had negative CT head and NIS scale of 0. Patient did not have any chest pain while she was in ER and did not begin distress. Patient labs was unremarkable except for mild elevation of liver function tests. Carotid Doppler study showed less than 50% carotid stenosis. Patient felt better after being in ER and instructed to follow-up with her primary care physician. Dragon Disclaimer Dragon Disclaimer This electronic medical record was generated, in whole or in part, using a voice recognition dictation system. Critical Care Time Critical care time was [95] minutes exclusive of procedures. Departure Departure: Impression: Primary Impression: Hyperventilation Additional Impressions: Non-cardiac chest pain Schizophrenia Abnormal liver function tests Tobacco abuse Tobacco abuse counseling Disposition: HOME, SELF-CARE (at 1420) Condition: IMPROVED Referrals: [facility] (PCP) Patient Instructions: Anxiety and Panic Attacks, Chest Wall Pain, Hyperventilation, Schizophrenia Additional Instructions: Drink plenty of liquids Follow-up with your primary care physician in 3-5 days Return to ER if not getting better Problem Qualifiers ROSALINDA GALLEGOS MD May 26, 2018 14:25
[2018-05-26] MEDS ORDERED: ACETAMINOPHEN 500 MG TABLET PO ONE (14:30)
--- NOTE | 2018-05-26 14:34 | RAD ---
EXAM: Carotid Doppler sonogram. HISTORY: Left common carotid artery aneurysm. TECHNIQUE: Lizarraga scale and color Doppler sonographic evaluation of the neck with spectral waveform analysis was performed and static images are submitted for review. FINDINGS: There is intimal thickening within the left common carotid artery. The peak systolic velocity within the right common carotid artery is 97 cm/sec. The peak systolic velocity within the right internal carotid artery is 85 cm/sec and the end diastolic velocity within the right internal carotid artery is 44 cm/sec. The right ICA/CCA ratio is 0.92. The peak systolic velocity within the left common carotid artery is 124 cm/sec. The peak systolic velocity within the left internal carotid artery is 99 cm/sec and the end diastolic velocity within the left internal carotid artery is 45 cm/sec. The left ICA/CCA ratio is 1.06. There is normal antegrade flow within both vertebral arteries. IMPRESSION: 1. Elevated and diastolic velocities within the internal carotid arteries. This can be seen with 50-69 percent stenosis. However, the peak systolic velocities within the internal carotid artery suggests less than 50 percent stenosis. 2. No sonographic evidence of a reported common carotid artery aneurysm. This can be better assessed with a CT angiogram or MR angiogram if clinically indicated. PQRS Compliance Statement - Stenosis calculations for CT, MR and conventional angiography are based upon measurement of the distal ICA diameter in accordance with the NASCET methodology. Stenosis calculations for carotid ultrasound studies are derived from validated velocity criteria which are known to correlate with the NASCET methodology. Electronically signed by: Maryann Zhang MD (05/26/2018 2:31 PM) [facility]
== END 2018-05-26 14:39 | disposition home or self-care (01) ==
LOC: ER 12:23
DX: R07.89 Other chest pain (principal); R06.4 Hyperventilation; F20.9 Schizophrenia, unspecified; R94.5 Abnormal results of liver function studies; F41.9 Anxiety disorder, unspecified; F17.210 Nicotine dependence, cigarettes, uncomplicated; Z71.6 Tobacco abuse counseling; Z88.6 Allergy status to analgesic agent; Z88.4 Allergy status to anesthetic agent; Z91.018 Allergy to other foods
CPT/HCPCS: 36415; 70450; 71045; 72125; 80053; 80307; 81025; 82553; 83690; 83735; 83880; 84484; 85025; 85610; 85730; 93005; 93880; 99291; 99292; G0479

== ENCOUNTER 2018-06-20 08:00 | Emergency (ER) | payer OTHER ==
[~2018-06-20] VITALS: Ht 157.5 cm; Wt 90.6 kg
[2018-06-20] MEDS ORDERED: IV NORMAL SALINE 1,000ML 1,000 ML IV SCH (08:21)
--- NOTE | 2018-06-20 08:29 | PHYS DOC ---
Past History Past Medical History: Anxiety, Schizophrenia, Other Past Surgical History: Tubal ligation Smoking: Cigarettes Additional Smoking Information: trying to quit smoking had 1 cig yesterday Alcohol Use: None Drug Use: None Adult General Chief Complaint Chief Complaint: NAUSEA/VOMITING/DIARRHEA HPI HPI 32-year-old female patient states she was in [facility] to [place] and 10 5 days ago. Patient states for the last 2 days she has had episodes of nausea and vomiting and diarrhea with generalized pain that does not getting better. Patient states she had 2-3 episodes of vomiting or diarrhea every day but today she had 4 episodes of vomiting and 2 episodes of diarrhea. Patient complaining of chills and anorexia, generalized weakness and hurting all over feeling to left arm is heavier than usual. Patient had history of anxiety and states she didn't take her anxiety medication today. Review of Systems Review of Systems Constitutional: Denies fever or chills [] Eyes: Denies change in visual acuity, redness, or eye pain [] HENT: Denies nasal congestion or sore throat [] Respiratory: Denies cough or shortness of breath [] Cardiovascular: No additional information not addressed in HPI [] GI: Reports abdominal pain, nausea, vomiting, diarrhea [] : Denies dysuria or hematuria [] Musculoskeletal: Denies back pain or joint pain [] Integument: Denies rash or skin lesions [] Neurologic: Denies headache, focal weakness or sensory changes [] Endocrine: Denies polyuria or polydipsia [] All other systems were reviewed and found to be within normal limits, except as documented in this note. Current Medications Current Medications Current Medications Medications (Trade) Dose Ordered Sig/[facility] Start Time Stop Time Status Last Admin Dose Admin Ondansetron HCl (Zofran) 4 mg 1X ONCE 06/20/18 08:30 06/20/18 08:31 UNV Sodium Chloride 1,000 ml @ 1,000 mls/hr Q1H 06/20/18 08:21 06/20/18 09:20 UNV Allergies Allergies Allergies Coded Allergies Type Severity Reaction Last Updated Verified aspirin Allergy Severe SWELL 06/20/18 Yes ibuprofen Allergy Severe SWELL 06/20/18 Yes ketorolac Allergy Severe SWELL 06/20/18 Yes naproxen Allergy Severe SWELL 06/20/18 Yes fentanyl Allergy Intermediate itching 06/20/18 Yes kiwi Allergy Intermediate Itching 06/20/18 Yes Physical Exam Physical Exam Constitutional: Well nourished, mild distress, non-toxic appearance. [] HENT: Normocephalic, atraumatic, oropharynx moist, no oral exudates, nose normal. [] Eyes: PERRLA, EOMI, conjunctiva normal, no discharge. [] Neck: Normal range of motion, no tenderness, supple, no stridor. [] Cardiovascular:Heart rate regular rhythm, no murmur [] Lungs & Thorax: Bilateral breath sounds clear to auscultation [] Abdomen: Bowel sounds normal, soft, no tenderness, no masses, no pulsatile masses. [] Skin: Warm, dry, no erythema, no rash. [] Back: No tenderness, no CVA tenderness. [] Extremities: No tenderness, no cyanosis, no clubbing, ROM intact, no edema. [] Neurologic: Alert and oriented X 3, normal motor function, normal sensory function, no focal deficits noted. [] Psychologic: Affect anxious, judgement normal, mood normal. [] Current Patient Data Vital Signs Vital Signs Date Time Temp Pulse Resp B/P (MAP) Pulse Ox O2 Delivery O2 Flow Rate FiO2 06/20/18 08:05 97.9 88 20 97 Room Air EKG EKG [] Radiology/Procedures Radiology/Procedures [] Course & Med Decision Making Course & Med Decision Making Pertinent Labs reviewed. (See chart for details) Evaluation of patient in ER showed 32-year-old female patient with complaining of episodes of nausea and vomiting and diarrhea for 3 days. Patient was very anxious and treated with IV fluid, Zofran, Imodium and [place] and Atrovent and felt better and tolerated oral intake. Dragon Disclaimer Dragon Disclaimer This electronic medical record was generated, in whole or in part, using a voice recognition dictation system. Departure Departure: Impression: Primary Impression: Acute gastroenteritis Additional Impressions: Anxiety Tobacco abuse Tobacco abuse counseling Disposition: HOME, SELF-CARE (at 0957) Condition: IMPROVED Referrals: [facility] CAR[facility] (PCP) Patient Instructions: Anxiety and Panic Attacks, Viral Gastroenteritis Additional Instructions: Drink plenty of liquids Follow-up with your primary care physician in 3-5 days Return to ER if not getting better Continue home medication Scripts Ondansetron (ZOFRAN ODT) 4 Mg Tab.rapdis 1 TAB SL Q8HRS, #15 TAB Prov: ROSALINDA GALLEGOS MD 06/20/18 Problem Qualifiers ROSALINDA GALLEGOS MD Jun 20, 2018 08:29
[2018-06-20] MEDS ORDERED: HYDROcodone/APAP 5/325MG 1 TAB TABLET PO ONE (08:30)
[2018-06-20] MEDS ORDERED: ONDANSETRON PF 4 MG/2 ML VIAL. IV ONE (08:30)
[2018-06-20] MEDS ORDERED: LOPERAMIDE 2 MG CAPSULE PO ONE (08:30)
[2018-06-20 08:38] LABS: BASO # 0.1 x10^3/uL (0.0-0.2); BASO % 1 % (0-3); EOS # 0.1 x10^3/uL (0.0-0.7); EOS % 1 % (0-3); HEMATOCRIT 42.9 % (36.0-47.0); HEMOGLOBIN 14.7 g/dL (12.0-15.5); LYMPH # 1.7 x10^3/uL (1.0-4.8); LYMPH % 22 % (24-48); MEAN CORPUSCULAR HEMOGLOBIN 31 pg (25-35); MEAN CORPUSCULAR HGB CONC 34 g/dL (31-37); MEAN CORPUSCULAR VOLUME 90 fL (79-100); MONO # 0.4 x10^3/uL (0.0-1.1); MONO % 5 % (0-9); NEUT # 5.4 x10^3uL (1.8-7.7); NEUT % 71 % (31-73); PLATELET COUNT 286 x10^3/uL (140-400); RED BLOOD COUNT 4.76 x10^6/uL (3.50-5.40); RED CELL DISTRIBUTION WIDTH 12.9 % (11.5-14.5); WHITE BLOOD COUNT 7.7 x10^3/uL (4.0-11.0)
[2018-06-20 08:49] LABS: ALBUMIN 4.2 g/dL (3.4-5.0); CALCIUM 9.6 mg/dL (8.5-10.1); CREATININE 0.9 mg/dL (0.6-1.0); GFR 73.5; POTASSIUM 3.6 mmol/L (3.5-5.1); TOTAL BILIRUBIN 0.6 mg/dL (0.2-1.0); TOTAL PROTEIN 8.4 g/dL (6.4-8.2)
[2018-06-20 09:33] LABS: BACTERIA,URINE FEW /HPF (0-FEW); BILIRUBIN,URINE NEG (NEG); CLARITY,URINE HAZY; COLOR,URINE YELLOW; GLUCOSE,URINE NEG (NEG); NITRITE,URINE NEG (NEG); UROBILINOGEN,URINE 0.2 mg/dL (0.2 mg/dL)
[2018-06-20 09:34] LABS: SQUAMOUS EPITHELIAL CELL,UR MOD /LPF
[2018-06-20 09:41] LABS: U PREG PATIENT NEGATIVE (NEG)
[2018-06-20] MEDS ORDERED: ONDA4TAB10 SL (09:59)
[2018-06-20] MEDS ORDERED: LORazepam 2 MG/ML VIAL IV ONE (10:00)
[2018-06-20 10:12] VITALS: BP 129/80
== END 2018-06-20 10:12 | disposition home or self-care (01) ==
LOC: ER 08:00
DX: K52.9 Noninfective gastroenteritis and colitis, unspecified (principal); F41.9 Anxiety disorder, unspecified; F17.210 Nicotine dependence, cigarettes, uncomplicated; F20.9 Schizophrenia, unspecified; Z71.6 Tobacco abuse counseling; Z88.6 Allergy status to analgesic agent; Z88.8 Allergy status to other drugs, medicaments and biological substances; Z91.018 Allergy to other foods
CPT/HCPCS: 36415; 80053; 81001; 81025; 83690; 85025; 96361; 96374; 96375; 99285; J2060; J2405; J7030

== ENCOUNTER 2018-06-24 08:33 | Emergency (ER) | payer OTHER ==
[~2018-06-24] VITALS: Ht 157.5 cm; Wt 90.7 kg
[~2018-06-24 08:33] MED LIST changes: +ONDA4TAB10 SL
--- NOTE | 2018-06-24 09:06 | ED.ADGEN ---
Past History Past Medical History: Anxiety, Schizophrenia, Other Past Surgical History: Tubal ligation, Other Smoking: Cigarettes Alcohol Use: None Drug Use: None Adult General Chief Complaint Chief Complaint Presents with anxiety and bilateral arm numbness HPI HPI The patient came back from a cruise to [place] 2 weeks ago and presented to [facility] Emergency Department 4 days ago with complaints of abdominal pain, nausea , vomiting, diarrhea with bilateral arm tingling. She was diagnosis enteritis and sent home, but over the last 4 days, she's had persistent epigastric abdominal pain, bilateral arm numbness and tingling with anxiety. She denies any chest pain or shortness of breath. She notes severe discomfort of her arms bilaterally 10/10 severity. Review of Systems Review of Systems Constitutional: Denies fever or chills Eyes: Denies change in visual acuity, redness, or eye pain HENT: Denies nasal congestion or sore throat Respiratory: Denies cough or shortness of breath Cardiovascular: Denies chest pain or palpitations GI: With complaints of abdominal pain, nausea, vomiting and diarrhea : Denies dysuria or hematuria Musculoskeletal: Denies back pain or joint pain Integument: Denies rash or skin lesions Neurologic: Denies headache, focal weakness, with bilateral arm tingling Endocrine: Denies polyuria or polydipsia All other systems were reviewed and found to be within normal limits, except as documented in this note. Current Medications Current Medications Current Medications Medications (Trade) Dose Ordered Sig/Ifrah Start Time Stop Time Status Last Admin Dose Admin Ondansetron HCl (Zofran Odt) 4 mg STK-MED ONCE 06/24/18 10:38 06/24/18 10:39 DC Potassium Chloride (Klor-Con) 40 meq 1X ONCE 06/24/18 10:30 06/24/18 10:31 DC 06/24/18 10:33 40 MEQ Allergies Allergies Allergies Coded Allergies Type Severity Reaction Last Updated Verified aspirin Allergy Severe SWELL 06/20/18 Yes ibuprofen Allergy Severe SWELL 06/20/18 Yes ketorolac Allergy Severe SWELL 06/20/18 Yes naproxen Allergy Severe SWELL 06/20/18 Yes fentanyl Allergy Intermediate itching 06/20/18 Yes kiwi Allergy Intermediate Itching 06/20/18 Yes Physical Exam Physical Exam Constitutional: Well developed, well nourished, no acute distress, non-toxic appearance. Anxious, pacing the room. HENT: Normocephalic, atraumatic, bilateral external ears normal, oropharynx moist, no oral exudates, nose normal. Eyes: PERRLA, EOMI, conjunctiva normal, no discharge. Neck: Normal range of motion, no tenderness, supple, no stridor. Cardiovascular:Heart rate regular rhythm, no murmur Lungs & Thorax: Bilateral breath sounds clear to auscultation Abdomen: Bowel sounds normal, soft, no tenderness, no masses, no pulsatile masses. Skin: Warm, dry, no erythema, no rash. Back: No tenderness, no CVA tenderness. Extremities: No tenderness, no cyanosis, no clubbing, ROM intact, no edema. Neurologic: Alert and oriented X 3, CN II-XII intact, normal motor function, normal sensory function, no focal deficits noted. Gait normal Psychologic: Affect and mood anxious. Current Patient Data Vital Signs Vital Signs Date Time Temp Pulse Resp B/P (MAP) Pulse Ox O2 Delivery O2 Flow Rate FiO2 06/24/18 10:41 80 18 150/99 (116) 99 Room Air 06/24/18 08:42 98.1 Lab Results Laboratory Tests Test 06/24/18 08:53 06/24/18 09:15 Urine Collection Type Unknown Urine Color Straw Urine Clarity Clear Urine pH 7.0 Urine Specific [place] <=1.005 Urine Protein Neg (NEG-TRACE) Urine Glucose (UA) Neg mg/dL (NEG) Urine Ketones (Stick) Neg mg/dL (NEG) Urine Blood Small (NEG) Urine Nitrite Neg (NEG) Urine Bilirubin Neg (NEG) Urine Urobilinogen Dipstick 0.2 mg/dL (0.2 mg/dL) Urine Leukocyte Esterase Neg (NEG) Urine RBC 3-5 /HPF (0-2) Urine WBC 1-4 /HPF (0-4) Urine Squamous Epithelial Cells Mod /LPF Urine Bacteria Few /HPF (0-FEW) Urine Opiates Screen Neg (NEG) Urine Methadone Screen Neg (NEG) Urine Barbiturates Neg (NEG) Urine Phencyclidine Screen Neg (NEG) Urine Amphetamine/Methamphetamine Neg (NEG) Urine Benzodiazepines Screen Neg (NEG) Urine Cocaine Screen Neg (NEG) Urine Cannabinoids Screen Neg (NEG) Urine Ethyl Alcohol Neg (NEG) White Blood Count 5.8 x10^3/uL (4.0-11.0) Red Blood Count 4.54 x10^6/uL (3.50-5.40) Hemoglobin 13.8 g/dL (12.0-15.5) Hematocrit 40.6 % (36.0-47.0) Mean Corpuscular Volume 89 fL (79-100) Mean Corpuscular Hemoglobin 30 pg (25-35) Mean Corpuscular Hemoglobin Concent 34 g/dL (31-37) Red Cell Distribution Width 13.1 % (11.5-14.5) Platelet Count 250 x10^3/uL (140-400) Neutrophils (%) (Auto) 66 % (31-73) Lymphocytes (%) (Auto) 25 % (24-48) Monocytes (%) (Auto) 6 % (0-9) Eosinophils (%) (Auto) 2 % (0-3) Basophils (%) (Auto) 1 % (0-3) Neutrophils # (Auto) 3.8 x10^3uL (1.8-7.7) Lymphocytes # (Auto) 1.4 x10^3/uL (1.0-4.8) Monocytes # (Auto) 0.4 x10^3/uL (0.0-1.1) Eosinophils # (Auto) 0.1 x10^3/uL (0.0-0.7) Basophils # (Auto) 0.0 x10^3/uL (0.0-0.2) Sodium Level 143 mmol/L (136-145) Potassium Level 3.1 mmol/L (3.5-5.1) L Chloride Level 103 mmol/L (98-107) Carbon Dioxide Level 24 mmol/L (21-32) Anion Gap 16 (6-14) H Blood Urea Nitrogen 6 mg/dL (7-20) L Creatinine 0.9 mg/dL (0.6-1.0) Estimated GFR (Cockcroft-Gault) 73.5 BUN/Creatinine Ratio 7 (6-20) Glucose Level 151 mg/dL (70-99) H Calcium Level 9.2 mg/dL (8.5-10.1) Magnesium Level 2.0 mg/dL (1.8-2.4) Total Bilirubin 0.4 mg/dL (0.2-1.0) Aspartate Amino Transferase (AST) 103 U/L (15-37) H Alanine Aminotransferase (ALT) 176 U/L (14-59) H Alkaline Phosphatase 64 U/L (46-116) Troponin I Quantitative < 0.017 ng/mL (0-0.055) Total Protein 7.8 g/dL (6.4-8.2) Albumin 4.0 g/dL (3.4-5.0) Albumin/Globulin Ratio 1.1 (1.0-1.7) Lipase 115 U/L (73-393) Serum Test, Qualitative Negative (NEG) EKG EKG 09:16 ECG Normal sinus rhythm at [address]-T wave changes Radiology/Procedures Radiology/Procedures [] Course & Med Decision Making Course & Med Decision Making Patient presents with anxiety and bilateral arm numbness consistent with hyperventilation syndrome DDx-hyperventilation syndrome, N O'Prashant, dehydration Patient was stable in the emergency department. ECG and troponin showed no evidence of ACS or arrhythmia. PERC rule negative, doubt PE. Labs remarkable for hypokalemia. Patient given potassium replacement. Patient given Zofran for nausea. Patient improved with decreased anxiety. Neurologic exam normal. Old records reviewed from ED visit 05/26/2018-patient had unremarkable carotic duplex Doppler, CT head and neck with contrast was unremarkable. Patient follow-up with her PCP for further evaluation. 10:55 Patient improved paresthesias resolved. Neurologic exam normal Nausea improved after Zofran. Patient follow-up with PCP for further evaluation Final Impression Final Impression Clinical Impression Paresthesia of bilateral Upper Extremities Hypokalemia Anxiety. Dragon Disclaimer Dragon Disclaimer This electronic medical record was generated, in whole or in part, using a voice recognition dictation system. Departure Departure: Impression: Primary Impression: Paresthesia of upper extremity Additional Impressions: Hypokalemia Anxiety Disposition: 01 HOME, SELF-CARE Condition: STABLE Referrals: RAOUL DUNN MD, KATHLEEN R MD Follow-up tomorrow for further evaluation Patient Instructions: Anxiety and Panic Attacks, [id number], Hypokalemia, Paresthesia, [id number] Additional Instructions: If you develop pain, vomiting, fevers, shortness breath return to the emergency department immediately Scripts Potassium Chloride (POTASSIUM CHLORIDE) 10 Meq Tablet.er 20 MEQ PO DAILY for 5 Days, #10 TAB Prov: RICH BENAVIDES MD 06/24/18 RICH BENAVIDES MD Jun 24, 2018 09:06
[2018-06-24 09:28] LABS: BASO % 1 % (0-3); EOS # 0.1 x10^3/uL (0.0-0.7); EOS % 2 % (0-3); HEMATOCRIT 40.6 % (36.0-47.0); HEMOGLOBIN 13.8 g/dL (12.0-15.5); LYMPH # 1.4 x10^3/uL (1.0-4.8); LYMPH % 25 % (24-48); MEAN CORPUSCULAR HEMOGLOBIN 30 pg (25-35); MEAN CORPUSCULAR HGB CONC 34 g/dL (31-37); MEAN CORPUSCULAR VOLUME 89 fL (79-100); MONO # 0.4 x10^3/uL (0.0-1.1); MONO % 6 % (0-9); NEUT # 3.8 x10^3uL (1.8-7.7); NEUT % 66 % (31-73); PLATELET COUNT 250 x10^3/uL (140-400); RED BLOOD COUNT 4.54 x10^6/uL (3.50-5.40); RED CELL DISTRIBUTION WIDTH 13.1 % (11.5-14.5); WHITE BLOOD COUNT 5.8 x10^3/uL (4.0-11.0)
[2018-06-24 09:29] LABS: BILIRUBIN,URINE NEG (NEG); CLARITY,URINE CLEAR; COLOR,URINE STRAW; GLUCOSE,URINE NEG (NEG)
[2018-06-24 09:30] LABS: AMPHETAMINE/METHAMPHETAMINE NEG (NEG); BACTERIA,URINE FEW /HPF (0-FEW); BARBITURATES NEG (NEG); BENZODIAZEPINES NEG (NEG); CANNABINOIDS NEG (NEG); COCAINE NEG (NEG); METHADONE NEG (NEG); NITRITE,URINE NEG (NEG); OPIATES NEG (NEG); PHENCYCLIDINE NEG (NEG); SQUAMOUS EPITHELIAL CELL,UR MOD /LPF; UROBILINOGEN,URINE 0.2 mg/dL (0.2 mg/dL)
[2018-06-24 09:40] LABS: PREG TEST PT QUAL NEGATIVE (NEG)
[2018-06-24 09:51] LABS: ALBUMIN/GLOBULIN RATIO 1.1 (1.0-1.7); CALCIUM 9.2 mg/dL (8.5-10.1); CREATININE 0.9 mg/dL (0.6-1.0); GFR 73.5; POTASSIUM 3.1 mmol/L (3.5-5.1); TOTAL BILIRUBIN 0.4 mg/dL (0.2-1.0); TOTAL PROTEIN 7.8 g/dL (6.4-8.2)
[2018-06-24] MEDS ORDERED: POTASSIUM CHLORIDE 20 MEQ TABLET.ER. PO ONE (10:30)
[2018-06-24] MEDS ORDERED: ONDANSETRON ODT 4 MG TAB.RAPDIS ONE (10:38)
[2018-06-24 10:41] VITALS: BP 150/99
[2018-06-24] MEDS ORDERED: POTA10TA10 PO (10:44)
[2018-06-24] MEDS ORDERED: ONDANSETRON ODT 4 MG TAB.RAPDIS PO ONE (10:45)
== END 2018-06-24 10:55 | disposition home or self-care (01) ==
LOC: ER 08:33
DX: F41.9 Anxiety disorder, unspecified (principal); E87.6 Hypokalemia; R19.7 Diarrhea, unspecified; F20.9 Schizophrenia, unspecified; F17.210 Nicotine dependence, cigarettes, uncomplicated; Z98.51 Tubal ligation status; Z88.6 Allergy status to analgesic agent; Z88.8 Allergy status to other drugs, medicaments and biological substances; Z88.4 Allergy status to anesthetic agent; Z91.018 Allergy to other foods
CPT/HCPCS: 36415; 80053; 80307; 81001; 83690; 83735; 84484; 84703; 85025; 93005; 99285; Q0162; G0479

== ENCOUNTER 2018-07-16 20:40 | Emergency (ER) | payer OTHER ==
[~2018-07-16] VITALS: Ht 157.5 cm; Wt 87.1 kg
[~2018-07-16 20:40] MED LIST changes: +POTA10TA10 PO
--- NOTE | 2018-07-16 20:44 | ED.ADGEN ---
Past History Past Medical History: Anxiety, Schizophrenia, Other Past Surgical History: Tubal ligation, Other Smoking: Cigarettes Alcohol Use: None Drug Use: None Adult General Chief Complaint Chief Complaint ".. I am having neck pain...for last three days..." HPI HPI Patient is a 32 year old female who presents with above hx and complaints Lt. throat, mandible and neck adenopathy. History of trauma. No history of fever or chills. No history of specific ill contacts. No history of travel. No history of trauma. No history immunosuppression. No obvious significant dental decay. No trismus. Review of Systems Review of Systems Constitutional: Denies fever or chills [] Eyes: Denies change in visual acuity, redness, or eye pain [] HENT: Left mandible, neck and sore throat [] Respiratory: Denies cough or shortness of breath [] Cardiovascular: No additional information not addressed in HPI [] GI: Denies abdominal pain, nausea, vomiting, bloody stools or diarrhea [] : Denies dysuria or hematuria [] Musculoskeletal: Denies back pain or joint pain [] Integument: Denies rash or skin lesions [] Neurologic: Denies headache, focal weakness or sensory changes [] Endocrine: Denies polyuria or polydipsia [] All other systems were reviewed and found to be within normal limits, except as documented in this note. Family History Family History Noncontributory Current Medications Current Medications Current Medications Medications (Trade) Dose Ordered Sig/Ifrah Start Time Stop Time Status Last Admin Dose Admin Oxycodone/ Acetaminophen (Percocet 5/325) 2 tab 1X ONCE 07/16/18 22:15 07/16/18 22:16 DC 07/16/18 22:34 2 TAB Prednisone (Prednisone) 60 mg 1X ONCE 07/16/18 22:15 07/16/18 22:16 DC 07/16/18 22:36 60 MG Allergies Allergies Allergies Coded Allergies Type Severity Reaction Last Updated Verified aspirin Allergy Severe SWELL 06/20/18 Yes ibuprofen Allergy Severe SWELL 06/20/18 Yes ketorolac Allergy Severe SWELL 06/20/18 Yes naproxen Allergy Severe SWELL 06/20/18 Yes fentanyl Allergy Intermediate itching 06/20/18 Yes kiwi Allergy Intermediate Itching 06/20/18 Yes Physical Exam Physical Exam Constitutional: Moderately acute distress, non-toxic appearance. [] HENT: Normocephalic, atraumatic, bilateral external ears normal, oropharynx moist, no oral exudates, nose normal. []Left mandible throat adenopathy Eyes: PERRLA, EOMI, conjunctiva normal, no discharge. [] Neck: Normal range of motion, no tenderness, supple, no stridor. [] Cardiovascular:Heart rate regular rhythm, no murmur [] Lungs & Thorax: Bilateral breath sounds clear to auscultation [] Abdomen: Bowel sounds normal, soft, no tenderness, no masses, no pulsatile masses. [] Obese. Skin: Warm, dry, no erythema, no rash. [] Back: No tenderness, no CVA tenderness. [] Extremities: No tenderness, no cyanosis, no clubbing, ROM intact, no edema. [] Neurologic: Alert and oriented X 3, normal motor function, normal sensory function, no focal deficits noted. [] Psychologic: Affect anxious, judgement normal, mood normal. [] Current Patient Data Vital Signs Vital Signs Date Time Temp Pulse Resp B/P (MAP) Pulse Ox O2 Delivery O2 Flow Rate FiO2 07/16/18 23:18 51 20 126/81 (96) 98 Room Air 07/16/18 21:40 98.3 Lab Results Laboratory Tests Test 07/16/18 21:17 07/16/18 21:47 07/16/18 22:00 POC Urine HCG, Qualitative hcg negative (Negative) Urine Collection Type Clean catch Urine Color Yellow Urine Clarity Hazy Urine pH 6.0 Urine Specific [place] 1.025 Urine Protein Neg (NEG-TRACE) Urine Glucose (UA) Neg mg/dL (NEG) Urine Ketones (Stick) Neg mg/dL (NEG) Urine Blood Small (NEG) Urine Nitrite Neg (NEG) Urine Bilirubin Neg (NEG) Urine Urobilinogen Dipstick 0.2 mg/dL (0.2 mg/dL) Urine Leukocyte Esterase Small (NEG) Urine RBC 1-2 /HPF (0-2) Urine WBC 5-10 /HPF (0-4) Urine Squamous Epithelial Cells Mod /LPF Urine Bacteria Many /HPF (0-FEW) Urine Mucus Marked /LPF Urine Opiates Screen Neg (NEG) Urine Methadone Screen Neg (NEG) Urine Barbiturates Neg (NEG) Urine Phencyclidine Screen Neg (NEG) Urine Amphetamine/Methamphetamine Neg (NEG) Urine Benzodiazepines Screen Pos (NEG) Urine Cocaine Screen Neg (NEG) Urine Cannabinoids Screen Neg (NEG) Urine Ethyl Alcohol Neg (NEG) Group A Streptococcus Rapid Negative (NEGATIVE) EKG EKG [] Radiology/Procedures Radiology/Procedures [] Course & Med Decision Making Course & Med Decision Making Pertinent Labs and Imaging studies reviewed. (See chart for details). Gargle with Listerine 4 times a day. Take Tylenol for pain. Take Percocet for marked pain. Follow-up primary care. Lymphadenopathy persistent needle biopsy of the sites. Suspect is a viral presentation. Follow-up primary care. [] Final Impression Final Impression 1. Neck Pain[]-Adenopathy Dragon Disclaimer Dragon Disclaimer This electronic medical record was generated, in whole or in part, using a voice recognition dictation system. JORGE LUIS SALES MD Jul 16, 2018 20:44
[2018-07-16] MEDS ORDERED: predniSONE 20 MG TABLET PO ONE (22:15)
[2018-07-16] MEDS ORDERED: oxyCODONE/APAP 5/325 1 TAB TABLET PO ONE (22:15)
[2018-07-16 22:34] LABS: AMPHETAMINE/METHAMPHETAMINE NEG (NEG); BARBITURATES NEG (NEG); BENZODIAZEPINES POS (NEG); CANNABINOIDS NEG (NEG); COCAINE NEG (NEG); METHADONE NEG (NEG); OPIATES NEG (NEG); PHENCYCLIDINE NEG (NEG)
[2018-07-16 22:40] LABS: BACTERIA,URINE MANY /HPF (0-FEW); BILIRUBIN,URINE NEG (NEG); CLARITY,URINE HAZY; COLOR,URINE YELLOW; GLUCOSE,URINE NEG (NEG); NITRITE,URINE NEG (NEG); SQUAMOUS EPITHELIAL CELL,UR MOD /LPF; UROBILINOGEN,URINE 0.2 mg/dL (0.2 mg/dL)
[2018-07-16] MEDS ORDERED: OXYC-323 PO (22:51)
[2018-07-16 23:18] VITALS: BP 126/81
== END 2018-07-16 23:23 | disposition home or self-care (01) ==
LOC: ER 20:40
DX: R59.9 Enlarged lymph nodes, unspecified (principal); R68.84 Jaw pain; F41.9 Anxiety disorder, unspecified; F20.9 Schizophrenia, unspecified; F17.210 Nicotine dependence, cigarettes, uncomplicated; Z88.6 Allergy status to analgesic agent; Z88.8 Allergy status to other drugs, medicaments and biological substances; Z91.018 Allergy to other foods
CPT/HCPCS: 36415; 80307; 81001; 81025; 87070; 87086; 87880; 99284; J7512; G0479

== ENCOUNTER 2018-10-12 11:58 | Emergency (ER) | payer OTHER ==
[~2018-10-12] VITALS: Ht 157.5 cm; Wt 88.5 kg
[~2018-10-12 11:58] MED LIST changes: +HYDR-3165 PO; -HYDR-971 PO; +OXYC-323 PO
[2018-10-12] MEDS ORDERED: ORPHENADRINE CITRATE 60 MG/2 ML VIAL. IM ONE (12:30)
[2018-10-12] MEDS ORDERED: DEXAMETHASONE SOD PHOS 10 MG/ML VIAL IM ONE (12:30)
[2018-10-12] MEDS ORDERED: HYDROcodone/APAP 7.5/325MG 1 TAB TABLET PO ONE (12:30)
[2018-10-12 13:06] VITALS: BP 129/84
[2018-10-12] MEDS ORDERED: TRAM50TA PO (13:16)
[2018-10-12] MEDS ORDERED: ORPH-16 PO (13:16)
--- NOTE | 2018-10-12 13:16 | PHYS DOC ---
Past History Past Medical History: Other Past Surgical History: Smoking: Cigarettes Alcohol Use: None Drug Use: None Adult General Chief Complaint Chief Complaint: BACK PAIN OR INJURY [facility] HPI Patient is a 33-year-old female who presents with complaint of lower back pain that radiates down her left leg that started yesterday. Patient states that she woke up with the pain in her lower back. She states that a lot of the pain is also in her left buttock. She describes pain in her buttock is a sharp stab and states that that is where it seems like the pain goes down her leg comes from. She denies any urinary discomfort or fever. Patient states the pain in her back is worsened with movement. She denies any recent injuries or heavy lifting. Review of Systems Review of Systems Constitutional: Denies fever or chills [] Respiratory: Denies cough or shortness of breath [] Cardiovascular: No additional information not addressed in HPI [] GI: Denies abdominal pain, nausea, vomiting or diarrhea [] : Denies dysuria or hematuria [] Musculoskeletal: Complains of lower back pain [] Integument: Denies rash or skin lesions [] Neurologic: Denies loss of bowel or bladder control[] Current Medications Current Medications Current Medications Medications (Trade) Dose Ordered Sig/Ifrah Start Time Stop Time Status Last Admin Dose Admin Acetaminophen/ Hydrocodone Bitart (Lortab 7.5/325) 1 tab 1X ONCE 10/12/18 12:30 10/12/18 12:31 DC 10/12/18 12:48 1 TAB Dexamethasone Sodium Phosphate (Decadron) 10 mg 1X ONCE 10/12/18 12:30 10/12/18 12:31 DC 10/12/18 12:48 10 MG Orphenadrine Citrate (Norflex) 60 mg 1X ONCE 10/12/18 12:30 10/12/18 12:31 DC 10/12/18 12:48 60 MG Allergies Allergies Allergies Coded Allergies Type Severity Reaction Last Updated Verified aspirin Allergy Severe SWELL 06/20/18 Yes ibuprofen Allergy Severe SWELL 06/20/18 Yes ketorolac Allergy Severe SWELL 06/20/18 Yes naproxen Allergy Severe SWELL 06/20/18 Yes fentanyl Allergy Intermediate itching 06/20/18 Yes kiwi Allergy Intermediate Itching 06/20/18 Yes Physical Exam Physical Exam Constitutional: Well developed, well nourished, no acute distress, non-toxic appearance. [] Neck: Normal range of motion, no tenderness, supple, no stridor. [] Cardiovascular:Heart rate regular rhythm [] Lungs & Thorax: Bilateral breath sounds clear to auscultation [] Abdomen: Bowel sounds normal, soft, no tenderness. [] Skin: Warm, dry, no erythema, no rash. [] Back: There is tenderness to palpation in the lumbar paraspinal musculature bilaterally, left greater than right with palpable spasm on the left. [] Current Patient Data Vital Signs Vital Signs Date Time Temp Pulse Resp B/P (MAP) Pulse Ox O2 Delivery O2 Flow Rate FiO2 10/12/18 12:05 97.8 95 20 96 Room Air EKG EKG [] Radiology/Procedures Radiology/Procedures [] Course & Med Decision Making Course & Med Decision Making Pertinent Labs and Imaging studies reviewed. (See chart for details) Patient given IM doses of Toradol and Decadron. After treatment, patient does report moderate improvement in pain. Dragon Disclaimer Dragon Disclaimer This electronic medical record was generated, in whole or in part, using a voice recognition dictation system. Departure Departure: Impression: Primary Impression: Low back pain Additional Impression: Sciatica Disposition: 01 HOME, SELF-CARE Condition: STABLE Referrals: MOISÉS CARMEN (PCP) Patient Instructions: Back Pain, Adult, Sciatica Scripts Orphenadrine Citrate (ORPHENADRINE CITRATE) 100 Mg Tablet.er 1 TAB PO BID PRN for MUSCLE SPASMS, #20 TAB Prov: PAYTON BEST Jr. DO 10/12/18 Tramadol Hcl (TRAMADOL HCL) 50 Mg Tablet 50 MG PO PRN Q6HRS PRN for PAIN, #12 TAB Prov: PAYTON BEST Jr. DO 10/12/18 Problem Qualifiers Primary Impression: Low back pain Chronicity: acute Back pain laterality: bilateral Sciatica presence: with sciatica Sciatica laterality: sciatica of left side Qualified Codes: M54.42 - Lumbago with sciatica, left side Additional Impression: Sciatica Laterality: left Qualified Codes: M54.32 - Sciatica, left side PAYTON BEST Jr. DO Oct 12, 2018 13:16
== END 2018-10-12 13:20 | disposition home or self-care (01) ==
LOC: ER 11:58
DX: M54.42 Lumbago with sciatica, left side (principal); F17.210 Nicotine dependence, cigarettes, uncomplicated; Z98.890 Other specified postprocedural states; Z88.6 Allergy status to analgesic agent; Z88.8 Allergy status to other drugs, medicaments and biological substances; Z91.018 Allergy to other foods
CPT/HCPCS: 96372; 99284; J1100; J2360

== ENCOUNTER 2018-10-21 15:25 | Emergency (ER) | payer OTHER ==
[~2018-10-21] VITALS: Ht 157.5 cm; Wt 90.7 kg
[~2018-10-21 15:25] MED LIST changes: +ORPH-16 PO; -OXYC-323 PO; +OXYC1TAB15 PO; +TRAM50TA PO
[2018-10-21] MEDS ORDERED: METR500T PO (18:26)
[2018-10-21] MEDS ORDERED: cefTRIAXone IM 250 MG VIAL IM ONE (18:30)
[2018-10-21] MEDS ORDERED: metroNIDAZOLE 500 MG TABLET PO ONE (18:30)
[2018-10-21] MEDS ORDERED: AZITHROMYCIN 250 MG TABLET. PO ONE (18:30)
--- NOTE | 2018-10-21 18:48 | PHYS DOC ---
Past History Past Medical History: No Pertinent History Past Surgical History: Tubal ligation Smoking: Cigarettes Alcohol Use: None Drug Use: None Adult General Chief Complaint Chief Complaint: SEXUALLY TRANSMITTED DISEASE HPI HPI 33-year-old female presents with concern for significant disease. Patient has had some vaginal discharge that is whitish yellow. She also recently found out that her has been having a sexual affair with someone else. She wants tested for STDs and has requested to be treated either way. She denies fever or chills. She denies dysuria or frequency. She has no other complaints. Review of Systems Review of Systems Constitutional: Denies fever or chills [] Eyes: Denies change in visual acuity, redness, or eye pain [] HENT: Denies nasal congestion or sore throat [] Respiratory: Denies cough or shortness of breath [] Cardiovascular: No additional information not addressed in HPI [] GI: Denies abdominal pain, nausea, vomiting, bloody stools or diarrhea [] : Vaginal discharge[] Musculoskeletal: Denies back pain or joint pain [] Integument: Denies rash or skin lesions [] Neurologic: Denies headache, focal weakness or sensory changes [] Endocrine: Denies polyuria or polydipsia [] All other systems were reviewed and found to be within normal limits, except as documented in this note. Current Medications Current Medications Current Medications Medications (Trade) Dose Ordered Sig/Ifrah Start Time Stop Time Status Last Admin Dose Admin Azithromycin (Zithromax) 1,000 mg 1X ONCE 10/21/18 18:30 10/21/18 18:36 DC 10/21/18 18:44 1,000 MG Ceftriaxone Sodium (Rocephin Im) 250 mg 1X ONCE 10/21/18 18:30 10/21/18 18:36 DC 10/21/18 18:44 250 MG Metronidazole (Flagyl) 500 mg 1X ONCE 10/21/18 18:30 10/21/18 18:36 DC Allergies Allergies Allergies Coded Allergies Type Severity Reaction Last Updated Verified aspirin Allergy Severe SWELL 06/20/18 Yes ibuprofen Allergy Severe SWELL 06/20/18 Yes ketorolac Allergy Severe SWELL 06/20/18 Yes naproxen Allergy Severe SWELL 06/20/18 Yes fentanyl Allergy Intermediate itching 06/20/18 Yes kiwi Allergy Intermediate Itching 06/20/18 Yes Physical Exam Physical Exam Constitutional: Well developed, well nourished, no acute distress, non-toxic appearance. [] HENT: Normocephalic, atraumatic, bilateral external ears normal, oropharynx moist, no oral exudates, nose normal. [] Eyes: PERRLA, EOMI, conjunctiva normal, no discharge. [] Neck: Normal range of motion, no tenderness, supple, no stridor. [] Cardiovascular:Heart rate regular rhythm, no murmur [] Lungs & Thorax: Bilateral breath sounds clear to auscultation [] Abdomen: Bowel sounds normal, soft, no tenderness, no masses, no pulsatile masses. [] Skin: Warm, dry, no erythema, no rash. [] Back: No tenderness, no CVA tenderness. [] Extremities: No tenderness, no cyanosis, no clubbing, ROM intact, no edema. [] Neurologic: Alert and oriented X 3, normal motor function, normal sensory function, no focal deficits noted. [] Psychologic: Affect normal, judgement normal, mood normal. : External exam shaved pubic hair, no external findings, and vaginal exam shows whitish yellow discharge. Patient had cervical motion tenderness with palpation. She also had right adnexal discomfort with bimanual exam. [] Current Patient Data Vital Signs Vital Signs Date Time Temp Pulse Resp B/P (MAP) Pulse Ox O2 Delivery O2 Flow Rate FiO2 10/21/18 15:30 98.6 115 18 97 Room Air Lab Results Microbiology 10/21/18 Wet Prep - Final, Complete EKG EKG [] Radiology/Procedures Radiology/Procedures [] Course & Med Decision Making Course & Med Decision Making Pertinent Labs and Imaging studies reviewed. (See chart for details) I have treated the patient with 2050 mg Rocephin IM, 1 g of azithromycin by mouth, but her milligrams of metronidazole. I will discharge her with 7 more days of metronidazole 3 times a day. Patient did test positive for Trichomonas. GC chlamydia is pending. She is stable for discharge at this time. [] Dragon Disclaimer Dragon Disclaimer This electronic medical record was generated, in whole or in part, using a voice recognition dictation system. Departure Departure: Impression: Primary Impression: Screen for sexually transmitted diseases Additional Impression: Trichomonas vaginalis infection Disposition: 01 HOME, SELF-CARE Condition: STABLE Patient Instructions: Trichomoniasis-Brief, Sexually Transmitted Disease, Easy- to-Read Scripts Metronidazole (FLAGYL) 500 Mg Tablet 1 TAB PO TID for infection for 7 Days, #21 TAB Prov: BAO CHILDRESS DO 10/21/18 Problem Qualifiers BAO CHILDRESS DO Oct 21, 2018 18:48
[2018-10-21 19:00] VITALS: BP 120/68
[2018-10-22 13:14] LABS: CHLAMYDIA PROBE Negative (Negative)
== END 2018-10-21 19:04 | disposition home or self-care (01) ==
LOC: ER 15:25
DX: Z20.2 Contact with and (suspected) exposure to infections with a predominantly sexual mode of transmission (principal); A59.01 Trichomonal vulvovaginitis; F17.210 Nicotine dependence, cigarettes, uncomplicated; Z98.51 Tubal ligation status; Z88.6 Allergy status to analgesic agent; Z88.8 Allergy status to other drugs, medicaments and biological substances; Z91.018 Allergy to other foods
CPT/HCPCS: 36415; 87491; 87591; 96372; 99283; J0456; J0696; Q0111

== ENCOUNTER 2018-10-31 08:18 | Emergency (ER) | payer OTHER ==
[~2018-10-31] VITALS: Ht 157.5 cm; Wt 90.5 kg
[~2018-10-31 08:18] MED LIST changes: +METR500T PO
[2018-10-31] MEDS ORDERED: IV NORMAL SALINE 1,000ML 1,000 ML IV SCH (08:44)
[2018-10-31] MEDS ORDERED: ONDANSETRON PF 4 MG/2 ML VIAL. IV ONE (09:00)
[2018-10-31] MEDS ORDERED: FAMOTIDINE 20 MG/2 ML VIAL IVP ONE (09:00)
[2018-10-31 09:05] LABS: BASO # 0.1 x10^3/uL (0.0-0.2); BASO % 1 % (0-3); EOS # 0.2 x10^3/uL (0.0-0.7); EOS % 3 % (0-3); HEMATOCRIT 43.6 % (36.0-47.0); HEMOGLOBIN 14.7 g/dL (12.0-15.5); LYMPH # 2.3 x10^3/uL (1.0-4.8); LYMPH % 33 % (24-48); MEAN CORPUSCULAR HEMOGLOBIN 30 pg (25-35); MEAN CORPUSCULAR HGB CONC 34 g/dL (31-37); MEAN CORPUSCULAR VOLUME 89 fL (79-100); MONO # 0.6 x10^3/uL (0.0-1.1); MONO % 8 % (0-9); NEUT # 3.9 x10^3uL (1.8-7.7); NEUT % 55 % (31-73); PLATELET COUNT 252 x10^3/uL (140-400); RED BLOOD COUNT 4.92 x10^6/uL (3.50-5.40); RED CELL DISTRIBUTION WIDTH 13.5 % (11.5-14.5); WHITE BLOOD COUNT 7.2 x10^3/uL (4.0-11.0)
[2018-10-31 09:09] LABS: BACTERIA,URINE MANY /HPF (0-FEW); BILIRUBIN,URINE NEG (NEG); CLARITY,URINE CLOUDY; COLOR,URINE YELLOW; GLUCOSE,URINE NEG (NEG); NITRITE,URINE NEG (NEG); RBC,URINE 0 /HPF (0-2); SQUAMOUS EPITHELIAL CELL,UR MANY /LPF; UROBILINOGEN,URINE 0.2 mg/dL (0.2 mg/dL)
[2018-10-31 09:12] LABS: BARBITURATES NEG (NEG); BENZODIAZEPINES NEG (NEG); CANNABINOIDS NEG (NEG); COCAINE NEG (NEG); METHADONE NEG (NEG); OPIATES NEG (NEG); PHENCYCLIDINE NEG (NEG)
[2018-10-31 09:13] LABS: AMPHETAMINE/METHAMPHETAMINE NEG (NEG)
--- NOTE | 2018-10-31 09:21 | PHYS DOC ---
Past History Past Medical History: No Pertinent History Past Surgical History: Tubal ligation Smoking: Cigarettes Alcohol Use: None Drug Use: None Adult General Chief Complaint Chief Complaint: ABDOMINAL PAIN HPI HPI Patient is a 33 year old female who presents with complaining of nausea and vomiting and diarrhea and epigastric pain for the last 3 days. Patient states she had a episodes of vomiting every day and 6 or 7 episodes of nonbloody diarrhea a day for the last 3 days with constant epigastric pain as a sharp pain and rated her pain 8/10. Patient denies urinary symptoms, , chest pain and shortness of breath. Patient had sick contacts at home. Review of Systems Review of Systems Constitutional: Denies fever or chills [] Eyes: Denies change in visual acuity, redness, or eye pain [] HENT: Denies nasal congestion or sore throat [] Respiratory: Denies cough or shortness of breath [] Cardiovascular: No additional information not addressed in HPI [] GI: Reports abdominal pain, nausea, vomiting, diarrhea [] : Denies dysuria or hematuria [] Musculoskeletal: Denies back pain or joint pain [] Integument: Denies rash or skin lesions [] Neurologic: Denies headache, focal weakness or sensory changes [] Endocrine: Denies polyuria or polydipsia [] All other systems were reviewed and found to be within normal limits, except as documented in this note. Current Medications Current Medications Current Medications Medications (Trade) Dose Ordered Sig/Ifrah Start Time Stop Time Status Last Admin Dose Admin Famotidine (Pepcid Vial) 20 mg 1X ONCE 10/31/18 09:00 10/31/18 09:01 DC 10/31/18 08:59 20 MG Ondansetron HCl (Zofran) 4 mg 1X ONCE 10/31/18 09:00 10/31/18 09:01 DC 10/31/18 08:58 4 MG Sodium Chloride 1,000 ml @ 1,000 mls/hr Q1H 10/31/18 08:44 10/31/18 09:43 10/31/18 08:58 1,000 MLS/HR Allergies Allergies Allergies Coded Allergies Type Severity Reaction Last Updated Verified aspirin Allergy Severe SWELL 06/20/18 Yes ibuprofen Allergy Severe SWELL 06/20/18 Yes ketorolac Allergy Severe SWELL 06/20/18 Yes naproxen Allergy Severe SWELL 06/20/18 Yes fentanyl Allergy Intermediate itching 06/20/18 Yes kiwi Allergy Intermediate Itching 06/20/18 Yes Physical Exam Physical Exam Constitutional: Well developed, well nourished, mild distress, non-toxic appearance. [] HENT: Normocephalic, atraumatic, bilateral external ears normal, oropharynx moist, no oral exudates, nose normal. [] Eyes: PERRLA, EOMI, conjunctiva normal, no discharge. [] Neck: Normal range of motion, no tenderness, supple, no stridor. [] Cardiovascular:Heart rate regular rhythm, no murmur [] Lungs & Thorax: Bilateral breath sounds clear to auscultation [] Abdomen: Bowel sounds normal, soft, no tenderness, no masses, no pulsatile masses. [] Skin: Warm, dry, no erythema, no rash. [] Back: No tenderness, no CVA tenderness. [] Extremities: No tenderness, no cyanosis, no clubbing, ROM intact, no edema. [] Neurologic: Alert and oriented X 3, normal motor function, normal sensory function, no focal deficits noted. [] Psychologic: Affect normal, judgement normal, mood normal. [] Current Patient Data Vital Signs Vital Signs Date Time Temp Pulse Resp B/P (MAP) Pulse Ox O2 Delivery O2 Flow Rate FiO2 10/31/18 08:20 98.2 99 18 99 Room Air Lab Results Laboratory Tests Test 10/31/18 08:25 10/31/18 08:51 Urine Collection Type Unknown Urine Color Yellow Urine Clarity Cloudy Urine pH 6.5 Urine Specific [place] 1.015 Urine Protein Neg (NEG-TRACE) Urine Glucose (UA) Neg mg/dL (NEG) Urine Ketones (Stick) Neg mg/dL (NEG) Urine Blood Trace (NEG) Urine Nitrite Neg (NEG) Urine Bilirubin Neg (NEG) Urine Urobilinogen Dipstick 0.2 mg/dL (0.2 mg/dL) Urine Leukocyte Esterase Small (NEG) Urine RBC 0 /HPF (0-2) Urine WBC 1-4 /HPF (0-4) Urine Squamous Epithelial Cells Many /LPF Urine Bacteria Many /HPF (0-FEW) Urine Opiates Screen Neg (NEG) Urine Methadone Screen Neg (NEG) Urine Barbiturates Neg (NEG) Urine Phencyclidine Screen Neg (NEG) Urine Amphetamine/Methamphetamine Neg (NEG) Urine Benzodiazepines Screen Neg (NEG) Urine Cocaine Screen Neg (NEG) Urine Cannabinoids Screen Neg (NEG) Urine Ethyl Alcohol Neg (NEG) White Blood Count 7.2 x10^3/uL (4.0-11.0) Red Blood Count 4.92 x10^6/uL (3.50-5.40) Hemoglobin 14.7 g/dL (12.0-15.5) Hematocrit 43.6 % (36.0-47.0) Mean Corpuscular Volume 89 fL (79-100) Mean Corpuscular Hemoglobin 30 pg (25-35) Mean Corpuscular Hemoglobin Concent 34 g/dL (31-37) Red Cell Distribution Width 13.5 % (11.5-14.5) Platelet Count 252 x10^3/uL (140-400) Neutrophils (%) (Auto) 55 % (31-73) Lymphocytes (%) (Auto) 33 % (24-48) Monocytes (%) (Auto) 8 % (0-9) Eosinophils (%) (Auto) 3 % (0-3) Basophils (%) (Auto) 1 % (0-3) Neutrophils # (Auto) 3.9 x10^3uL (1.8-7.7) Lymphocytes # (Auto) 2.3 x10^3/uL (1.0-4.8) Monocytes # (Auto) 0.6 x10^3/uL (0.0-1.1) Eosinophils # (Auto) 0.2 x10^3/uL (0.0-0.7) Basophils # (Auto) 0.1 x10^3/uL (0.0-0.2) EKG EKG [] Radiology/Procedures Radiology/Procedures [] Course & Med Decision Making Course & Med Decision Making Pertinent Labs and Imaging studies reviewed. (See chart for details) Evaluation of patient in ER showed 33-year-old male patient with complaining of multiple episodes of nausea and vomiting and diarrhea and abdominal pain for the last 2 days. Patient had unremarkable physical exam and labs and treated with IV fluid and Zofran and Pepcid and felt better and tolerated oral intake. Dragon Disclaimer Dragon Disclaimer This electronic medical record was generated, in whole or in part, using a voice recognition dictation system. Departure Departure: Impression: Primary Impression: Acute gastroenteritis Additional Impression: Urinary tract infection Disposition: HOME, SELF-CARE (at 0940) Condition: IMPROVED Referrals: MOISÉS CARMEN (PCP) Patient Instructions: Urinary Tract Infection, Viral Gastroenteritis Additional Instructions: Drink plenty of liquids Follow-up with your primary care physician in 3-5 days Return to ER if not getting better Do not eat solid food for 24 hours after the last episode of vomiting Scripts Ondansetron Hcl (ZOFRAN) 4 Mg Tablet 1 TAB PO Q6HRS for nausea and vomiting, #12 TAB Prov: ROSALINDA GALLEGOS MD 10/31/18 Sulfamethoxazole/Trimethoprim (BACTRIM DS TABLET) 1 Each Tablet 1 TAB PO BID for infection, #6 TAB Prov: ROSALINDA GALLEGOS MD 10/31/18 Problem Qualifiers ROSALINDA GALLEGOS MD Oct 31, 2018 09:21
[2018-10-31 09:24] LABS: U PREG PATIENT NEGATIVE (NEG)
[2018-10-31 09:24] LABS: ALBUMIN 3.6 g/dL (3.4-5.0); ALBUMIN/GLOBULIN RATIO 0.9 (1.0-1.7); CALCIUM 8.6 mg/dL (8.5-10.1); CREATININE 0.8 mg/dL (0.6-1.0); GFR 83.7; TOTAL BILIRUBIN 0.2 mg/dL (0.2-1.0); TOTAL PROTEIN 7.4 g/dL (6.4-8.2)
[2018-10-31 09:40] VITALS: BP 114/76
[2018-10-31] MEDS ORDERED: ONDA4TAB7 PO (09:42)
[2018-10-31] MEDS ORDERED: SULF1TAB24 PO (09:42)
== END 2018-10-31 09:40 | disposition home or self-care (01) ==
LOC: ER 08:18
DX: K52.9 Noninfective gastroenteritis and colitis, unspecified (principal); N39.0 Urinary tract infection, site not specified; F17.210 Nicotine dependence, cigarettes, uncomplicated; Z98.51 Tubal ligation status; Z88.6 Allergy status to analgesic agent; Z88.4 Allergy status to anesthetic agent; Z88.8 Allergy status to other drugs, medicaments and biological substances; Z91.018 Allergy to other foods
CPT/HCPCS: 36415; 80053; 80307; 81001; 81025; 83690; 85025; 87086; 96361; 96374; 96375; 99283; J2405; J3490; J7030

== ENCOUNTER 2019-01-12 20:49 | Emergency (ER) | payer OTHER ==
[~2019-01-12] VITALS: Ht 157.5 cm; Wt 94.0 kg
[~2019-01-12 20:49] MED LIST changes: +ONDA4TAB7 PO; +SULF1TAB24 PO
[2019-01-12] MEDS ORDERED: ONDANSETRON PF 4 MG/2 ML VIAL. ONE (21:14)
[2019-01-12 21:25] LABS: HEMATOCRIT 40.9 % (36.0-47.0); HEMOGLOBIN 13.9 g/dL (12.0-15.5); RED BLOOD COUNT 4.53 x10^6/uL (3.50-5.40); RED CELL DISTRIBUTION WIDTH 13.6 % (11.5-14.5); WHITE BLOOD COUNT 10.5 x10^3/uL (4.0-11.0)
[2019-01-12] MEDS ORDERED: ONDANSETRON PF 4 MG/2 ML VIAL. IV ONE (21:30)
[2019-01-12] MEDS ORDERED: IV NORMAL SALINE 1,000ML 1,000 ML IV ONE (21:30)
[2019-01-12] MEDS ORDERED: ONDANSETRON ODT 4 MG TAB.RAPDIS PO ONE (21:30)
--- NOTE | 2019-01-12 22:15 | RAD ---
PQRS Compliance Statement: One or more of the following individualized dose reduction techniques were utilized for this examination: 1. Automated exposure control 2. Adjustment of the mA and/or kV according to patient size 3. Use of iterative reconstruction technique CT HEAD AND CERVICAL SPINE WITHOUT CONTRAST History: Trauma. Fell and hit forehead on concrete. Patient in c-collar. Comparison: None. Procedure: Axial images are obtained of the head from the skull base through the vertex without IV contrast. Noncontrast helical CT of the cervical spine was performed. Axial, sagittal, and coronal reconstructions were obtained. Findings: The ventricles and sulci are normal for the patient's age. No mass-effect, midline shift, hemorrhage or obvious acute infarction is identified. Basilar cisterns are patent. Bone windows demonstrate no significant calvarial abnormality. The visualized paranasal sinuses are clear. Mastoid air cells are well aerated. There is no evidence of acute fracture or acute malalignment of the cervical spine. The vertebral body height and alignment are maintained. No disc space narrowing. No perched or jumped facets. The cranial vertebral junction is intact. There is minimal degenerative endplate spurring. Visualized soft tissues of the neck demonstrate no significant abnormalities. Incidental bilateral cervical ribs. The visualized lung apices are clear. IMPRESSION: 1. No acute intracranial abnormality. 2. No acute fracture of the cervical spine. Electronically signed by: David Shepard MD (01/12/2019 10:12 PM) [facility]
[2019-01-12] MEDS ORDERED: ACETAMINOPHEN 500 MG TABLET PO ONE ×2 (22:37→23:00)
[2019-01-12] MEDS ORDERED: ACET-704 PO (22:42)
--- NOTE | 2019-01-12 22:44 | PHYS DOC ---
Adult General Chief Complaint Chief Complaint Head injury HPI HPI Very pleasant 33 years old female presented to the emergency department after fall hit her head she vomited twice complaining of headache, neck pain no any other focal neurological signs or symptoms no weakness no numbness no extremities or lower extremities she has full control over her bladder and stool she is ambulating Review of Systems Review of Systems Constitutional: Denies fever or chills [] Eyes: Denies change in visual acuity, redness, or eye pain [] HENT: Denies nasal congestion or sore throat [] Respiratory: Denies cough or shortness of breath [] Cardiovascular: No additional information not addressed in HPI [] GI: Denies abdominal pain, nausea, vomiting, bloody stools or diarrhea [] : Denies dysuria or hematuria [] Musculoskeletal: Denies back pain or joint pain [] Integument: Denies rash or skin lesions [] Neurologic: Denies headache, focal weakness or sensory changes [] Endocrine: Denies polyuria or polydipsia [] All other systems were reviewed and found to be within normal limits, except as documented in this note. Current Medications Current Medications Current Medications Medications (Trade) Dose Ordered Sig/Ifrah Start Time Stop Time Status Last Admin Dose Admin Acetaminophen (Tylenol) 500 mg STK-MED ONCE 01/12/19 22:37 01/12/19 22:38 DC Ondansetron HCl (Zofran Odt) 4 mg 1X ONCE 01/12/19 21:30 01/12/19 21:31 DC Ondansetron HCl (Zofran) 4 mg STK-MED ONCE 01/12/19 21:14 01/12/19 21:15 DC Sodium Chloride 1,000 ml @ 1,000 mls/hr 1X ONCE 01/12/19 21:30 01/12/19 22:29 DC 01/12/19 21:16 1,000 MLS/HR Allergies Allergies Allergies Coded Allergies Type Severity Reaction Last Updated Verified aspirin Allergy Unknown 01/12/19 Yes ibuprofen Allergy Unknown 01/12/19 Yes ketorolac Allergy Unknown 01/12/19 Yes Physical Exam Physical Exam Constitutional: Well developed, well nourished, no acute distress, non-toxic appearance. [] HENT: Normocephalic, atraumatic, bilateral external ears normal, oropharynx moist, no oral exudates, nose normal. [] Eyes: PERRLA, EOMI, conjunctiva normal, no discharge. [] Neck: Normal range of motion, no tenderness, supple, no stridor. [] Cardiovascular:Heart rate regular rhythm, no murmur [] Lungs & Thorax: Bilateral breath sounds clear to auscultation [] Abdomen: Bowel sounds normal, soft, no tenderness, no masses, no pulsatile masses. [] Skin: Warm, dry, no erythema, no rash. [] Back: No tenderness, no CVA tenderness. [] Extremities: No tenderness, no cyanosis, no clubbing, ROM intact, no edema. [] Neurologic: Alert and oriented X 3, normal motor function, normal sensory function, no focal deficits noted. [] Psychologic: Affect normal, judgement normal, mood normal. [] Current Patient Data Vital Signs Vital Signs Date Time Temp Pulse Resp B/P (MAP) Pulse Ox O2 Delivery O2 Flow Rate FiO2 01/12/19 21:04 98.8 100 20 97 Room Air Lab Results Laboratory Tests Test 01/12/19 21:05 White Blood Count 10.5 x10^3/uL (4.0-11.0) Red Blood Count 4.53 x10^6/uL (3.50-5.40) Hemoglobin 13.9 g/dL (12.0-15.5) Hematocrit 40.9 % (36.0-47.0) Mean Corpuscular Volume 90 fL (79-100) Mean Corpuscular Hemoglobin 31 pg (25-35) Mean Corpuscular Hemoglobin Concent 34 g/dL (31-37) Red Cell Distribution Width 13.6 % (11.5-14.5) Platelet Count 261 x10^3/uL (140-400) EKG EKG [] Radiology/Procedures Radiology/Procedures [] Course & Med Decision Making Course & Med Decision Making Pertinent Labs and Imaging studies reviewed. (See chart for details) [] Final Impression Final Impression [] Problems: (1) Concussion Qualifiers: Qualified Codes: S06.0X0A - Concussion without loss of consciousness, initial encounter Dragon Disclaimer Dragon Disclaimer This electronic medical record was generated, in whole or in part, using a voice recognition dictation system. HANK FIELDS MD Jan 12, 2019 22:44
[2019-01-12 22:47] LABS: CALCIUM 8.8 mg/dL (8.5-10.1); CREATININE 0.7 mg/dL (0.6-1.0); GFR 97.6; POTASSIUM 3.7 mmol/L (3.5-5.1)
[2019-01-12 23:00] VITALS: BP 147/99
--- NOTE | 2019-01-13 08:19 | RAD ---
Right ankle radiograph 01/12/2019 9:52 PM INDICATION: Fall with right ankle and lateral malleolus pain COMPARISON: None available. TECHNIQUE: 3 views of the right ankle are provided. FINDINGS: There is no acute fracture or dislocation. Bone mineralization is within normal limits. Joint spaces are maintained. Soft tissue swelling is identified along the lateral malleolus. Tibial plafond and talar dome are intact. Ankle mortise appears congruent. Small plantar calcaneal enthesophyte is present. There is no soft tissue gas or osseous erosion. IMPRESSION: Lateral soft tissue swelling without acute fracture or dislocation. Electronically signed by: Nicki Shelby MD (01/13/2019 8:17 AM) [id number]
== END 2019-01-12 23:16 | disposition home or self-care (01) ==
LOC: MERGE 20:49 → ER 20:49
DX: S06.0X0A Concussion without loss of consciousness, initial encounter (principal); M25.571 Pain in right ankle and joints of right foot; R22.41 Localized swelling, mass and lump, right lower limb; M54.2 Cervicalgia; Z88.6 Allergy status to analgesic agent; Z88.8 Allergy status to other drugs, medicaments and biological substances; W18.09XA Striking against other object with subsequent fall, initial encounter; Y93.89 Activity, other specified; Y92.89 Other specified places as the place of occurrence of the external cause; Y99.8 Other external cause status
CPT/HCPCS: 36415; 70450; 72125; 73610; 80048; 85027; 96361; 96374; 99284; G0480; J2405; J7030

== ENCOUNTER → 2019-01-15 | Outpatient (CLI) | payer OTHER ==
[2019-01-12 23:00] VITALS: BP 147/99
[~2019-01-15] MED LIST changes: +ACET-704 PO; +ONDA8TAB9 PO
--- NOTE | 2019-01-15 16:26 | RAD ---
2 views of the lumbar spine and 3 views of the thoracic spine HISTORY: History of back pain status post fall COMPARISON: None available FINDINGS: The lumbar vertebrae lumbar and thoracic vertebral body heights are maintained. No obvious evidence of listhesis identified. Facets appear to be well aligned. Minimal lumbar levoscoliosis. IMPRESSION: No acute osseous findings. Electronically signed by: Edgar Renee MD (01/15/2019 4:24 PM) [facility]
== END | disposition home or self-care (01) ==
LOC: PMG 15:56
PROVIDERS: ATTEND Registered Nurse
DX: M54.5 Low back pain (principal); M54.6 Pain in thoracic spine; Z91.81 History of falling
CPT/HCPCS: 72072; 72100

== ENCOUNTER 2019-01-17 20:26 | Emergency (ER) | payer OTHER ==
[~2019-01-17] VITALS: Ht 157.5 cm; Wt 90.7 kg
[~2019-01-17 20:26] MED LIST changes: -ONDA8TAB9 PO
--- NOTE | 2019-01-17 20:35 | ED.ADGEN ---
Past History Past Medical History: Anxiety, Diabetes, Hypertension Past Surgical History: Tubal ligation Smoking: Cigarettes Alcohol Use: None Drug Use: None Adult General Chief Complaint Chief Complaint ".. I am sick.. my sugars are high...".. " I ve got a cold... too..." HPI HPI Patient is a 33 year old female who presents with above hx and complaints hyperglycemia. Patient has previous history of hyperglycemia a .. She did receive oral meds and insulin at that time. Has not been on meds since delivery. Patient recently upper respiratory infection. Generalized malaise. Has had increase urination. Does have a home monitor for glucose. Patient denies any travel. Patient denies specific ill contacts. Patient denies any history immunosuppression. Patient did have recent injury to right ankle and is in a walking cast. Patient has recent change medical providers. In the past follows Dr. Hayward. There is family history of diabetes and hypertension. Review of Systems Review of Systems Constitutional: Denies fever or chills [] Eyes: Denies change in visual acuity, redness, or eye pain [] HENT: History of nasal congestion Respiratory: Denies cough or shortness of breath [] Cardiovascular: No additional information not addressed in HPI [] GI: Denies abdominal pain, vomiting, bloody stools or diarrhea []complaints of nausea : Denies dysuria or hematuria [] Musculoskeletal: Denies back pain or joint pain []complaints of a right ankle and foot injury Integument: Denies rash or skin lesions [] Neurologic: Denies headache, focal weakness or sensory changes [] Endocrine: History of polyuria All other systems were reviewed and found to be within normal limits, except as documented in this note. Family History Family History Diabetes and hypertension Current Medications Current Medications Current Medications Medications (Trade) Dose Ordered Sig/Ifrah Start Time Stop Time Status Last Admin Dose Admin Lactated Ringer's 1,000 ml @ 1,000 mls/hr 1X ONCE 01/18/19 00:00 01/18/19 01:28 DC 01/18/19 00:51 1,000 MLS/HR Sodium Chloride 1,000 ml @ 1,000 mls/hr Q1H 01/17/19 20:36 01/17/19 21:35 DC 01/17/19 21:39 1,000 MLS/HR Allergies Allergies Allergies Coded Allergies Type Severity Reaction Last Updated Verified aspirin Allergy Severe SWELL 06/20/18 Yes ibuprofen Allergy Severe SWELL 06/20/18 Yes ketorolac Allergy Severe SWELL 06/20/18 Yes naproxen Allergy Severe SWELL 06/20/18 Yes fentanyl Allergy Intermediate itching 06/20/18 Yes kiwi Allergy Intermediate Itching 06/20/18 Yes Physical Exam Physical Exam Constitutional: Moderate distress, non-toxic appearance. [] HENT: Normocephalic, atraumatic, bilateral external ears normal, oropharynx dry, , no oral exudates, nose nasal congestion and clear rhinorrhea Eyes: PERRLA, EOMI, conjunctiva normal, no discharge. [] Neck: Normal range of motion, no tenderness, supple, no stridor. [] Cardiovascular: Tachycardia Heart rate regular rhythm, no murmur [] Lungs & Thorax: Bilateral breath sounds equal apex on auscultation. A few scattered wheezes Abdomen: Bowel sounds normal, soft, no tenderness, no masses, no pulsatile masses. [] Obese. Small surgery scars Skin: Warm, dry, no erythema, no rash. [] Back: No tenderness, no CVA tenderness. [] Extremities: No tenderness, no cyanosis, no clubbing, ROM intact, no edema. [] Right foot and ankle and walking cast Neurologic: Alert and oriented X 3, normal motor function, normal sensory function, no focal deficits noted. [] Psychologic: Affect anxious, judgement normal, mood normal. [] Current Patient Data Vital Signs Vital Signs Date Time Temp Pulse Resp B/P (MAP) Pulse Ox O2 Delivery O2 Flow Rate FiO2 01/18/19 02:40 90 18 117/79 (92) 95 Room Air 01/17/19 21:13 98.1 Lab Results Laboratory Tests Test 01/17/19 21:25 01/17/19 23:00 01/17/19 23:10 White Blood Count 7.0 x10^3/uL (4.0-11.0) Red Blood Count 4.30 x10^6/uL (3.50-5.40) Hemoglobin 13.3 g/dL (12.0-15.5) Hematocrit 39.3 % (36.0-47.0) Mean Corpuscular Volume 91 fL (79-100) Mean Corpuscular Hemoglobin 31 pg (25-35) Mean Corpuscular Hemoglobin Concent 34 g/dL (31-37) Red Cell Distribution Width 14.0 % (11.5-14.5) Platelet Count 228 x10^3/uL (140-400) Neutrophils (%) (Auto) 50 % (31-73) Lymphocytes (%) (Auto) 39 % (24-48) Monocytes (%) (Auto) 8 % (0-9) Eosinophils (%) (Auto) 3 % (0-3) Basophils (%) (Auto) 1 % (0-3) Neutrophils # (Auto) 3.5 x10^3uL (1.8-7.7) Lymphocytes # (Auto) 2.7 x10^3/uL (1.0-4.8) Monocytes # (Auto) 0.5 x10^3/uL (0.0-1.1) Eosinophils # (Auto) 0.2 x10^3/uL (0.0-0.7) Basophils # (Auto) 0.1 x10^3/uL (0.0-0.2) Sodium Level 141 mmol/L (136-145) Potassium Level 3.8 mmol/L (3.5-5.1) Chloride Level 105 mmol/L (98-107) Carbon Dioxide Level 27 mmol/L (21-32) Anion Gap 9 (6-14) Blood Urea Nitrogen 8 mg/dL (7-20) Creatinine 0.7 mg/dL (0.6-1.0) Estimated GFR (Cockcroft-Gault) 97.6 Glucose Level 165 mg/dL (70-99) H Calcium Level 8.3 mg/dL (8.5-10.1) L Magnesium Level 2.1 mg/dL (1.8-2.4) Total Bilirubin 0.1 mg/dL (0.2-1.0) L Direct Bilirubin 0.1 mg/dL (0.0-0.2) Aspartate Amino Transferase (AST) 27 U/L (15-37) Alanine Aminotransferase (ALT) 54 U/L (14-59) Alkaline Phosphatase 70 U/L (46-116) Troponin I Quantitative < 0.017 ng/mL (0-0.055) Total Protein 7.4 g/dL (6.4-8.2) Albumin 3.6 g/dL (3.4-5.0) Urine Collection Type Unknown Urine Color Yellow Urine Clarity Hazy Urine pH 7.0 Urine Specific [place] 1.025 Urine Protein Trace (NEG-TRACE) Urine Glucose (UA) 100 mg/dL (NEG) Urine Ketones (Stick) Neg mg/dL (NEG) Urine Blood Trace (NEG) Urine Nitrite Neg (NEG) Urine Bilirubin Neg (NEG) Urine Urobilinogen Dipstick 0.2 mg/dL (0.2 mg/dL) Urine Leukocyte Esterase Neg (NEG) Urine RBC 1-2 /HPF (0-2) Urine WBC 1-4 /HPF (0-4) Urine Squamous Epithelial Cells Few /LPF Urine Bacteria Mod /HPF (0-FEW) Urine Opiates Screen Pos (NEG) Urine Methadone Screen Neg (NEG) Urine Barbiturates Neg (NEG) Urine Phencyclidine Screen Neg (NEG) Urine Amphetamine/Methamphetamine Neg (NEG) Urine Benzodiazepines Screen Pos (NEG) Urine Cocaine Screen Neg (NEG) Urine Cannabinoids Screen Neg (NEG) Urine Ethyl Alcohol Neg (NEG) POC Urine HCG, Qualitative hcg negative (Negative) EKG EKG My interpretation EKG shows a sinus rhythm at 93 bpm. No acute morphology[] Radiology/Procedures Radiology/Procedures [] Course & Med Decision Making Course & Med Decision Making Pertinent Labs and Imaging studies reviewed. (See chart for details) Patient's stay on clear fluids for the next couple days if persistent nausea. Take Tylenol for discomfort. May have Benadryl for nasal congestion. Must follow -up primary care May need to return to oral medications for her elevated glucose levels. Must have attempt at diet control. Return if any concerns. Encouraged patient to stop smoking. Patient to document her blood sugars 4 times a day and keep a record to show on follow-up with her new physician. Must Follow-up. [] Final Impression Final Impression 1. Hyperglycemia[]-diabetic 2. Mild dehydration 3. Viral syndrome 4. Tobacco use 5. History of anxiety Dragon Disclaimer Dragon Disclaimer This electronic medical record was generated, in whole or in part, using a voice recognition dictation system. Dragon Disclaimer This chart was dictated in whole or in part using Voice Recognition software in a busy, high-work load, and often noisy Emergency Department environment. It may contain unintended and wholly unrecognized errors or omissions. Discharge Summary Visit Information Final Diagnosis Problems Medical Problems: (1) Hyperglycemia Status: Acute (2) Viral syndrome Status: Acute Brief Hospital Course Allergies Allergies Coded Allergies Type Severity Reaction Last Updated Verified aspirin Allergy Severe SWELL 06/20/18 Yes ibuprofen Allergy Severe SWELL 06/20/18 Yes ketorolac Allergy Severe SWELL 06/20/18 Yes naproxen Allergy Severe SWELL 06/20/18 Yes fentanyl Allergy Intermediate itching 06/20/18 Yes kiwi Allergy Intermediate Itching 06/20/18 Yes Vital Signs Vital Signs Date Time Temp Pulse Resp B/P (MAP) Pulse Ox O2 Delivery O2 Flow Rate FiO2 01/18/19 02:40 90 18 117/79 (92) 95 Room Air 01/17/19 21:13 98.1 Lab Results Laboratory Tests Test 01/17/19 21:25 01/17/19 23:00 01/17/19 23:10 White Blood Count 7.0 x10^3/uL (4.0-11.0) Red Blood Count 4.30 x10^6/uL (3.50-5.40) Hemoglobin 13.3 g/dL (12.0-15.5) Hematocrit 39.3 % (36.0-47.0) Mean Corpuscular Volume 91 fL (79-100) Mean Corpuscular Hemoglobin 31 pg (25-35) Mean Corpuscular Hemoglobin Concent 34 g/dL (31-37) Red Cell Distribution Width 14.0 % (11.5-14.5) Platelet Count 228 x10^3/uL (140-400) Neutrophils (%) (Auto) 50 % (31-73) Lymphocytes (%) (Auto) 39 % (24-48) Monocytes (%) (Auto) 8 % (0-9) Eosinophils (%) (Auto) 3 % (0-3) Basophils (%) (Auto) 1 % (0-3) Neutrophils # (Auto) 3.5 x10^3uL (1.8-7.7) Lymphocytes # (Auto) 2.7 x10^3/uL (1.0-4.8) Monocytes # (Auto) 0.5 x10^3/uL (0.0-1.1) Eosinophils # (Auto) 0.2 x10^3/uL (0.0-0.7) Basophils # (Auto) 0.1 x10^3/uL (0.0-0.2) Sodium Level 141 mmol/L (136-145) Potassium Level 3.8 mmol/L (3.5-5.1) Chloride Level 105 mmol/L (98-107) Carbon Dioxide Level 27 mmol/L (21-32) Anion Gap 9 (6-14) Blood Urea Nitrogen 8 mg/dL (7-20) Creatinine 0.7 mg/dL (0.6-1.0) Estimated GFR (Cockcroft-Gault) 97.6 Glucose Level 165 mg/dL (70-99) Calcium Level 8.3 mg/dL (8.5-10.1) Magnesium Level 2.1 mg/dL (1.8-2.4) Total Bilirubin 0.1 mg/dL (0.2-1.0) Direct Bilirubin 0.1 mg/dL (0.0-0.2) Aspartate Amino Transf (AST/SGOT) 27 U/L (15-37) Alanine Aminotransferase (ALT/SGPT) 54 U/L (14-59) Alkaline Phosphatase 70 U/L (46-116) Troponin I Quantitative < 0.017 ng/mL (0-0.055) Total Protein 7.4 g/dL (6.4-8.2) Albumin 3.6 g/dL (3.4-5.0) Urine Collection Type Unknown Urine Color Yellow Urine Clarity Hazy Urine pH 7.0 Urine Specific [place] 1.025 Urine Protein Trace (NEG-TRACE) Urine Glucose (UA) 100 mg/dL (NEG) Urine Ketones (Stick) Neg mg/dL (NEG) Urine Blood Trace (NEG) Urine Nitrite Neg (NEG) Urine Bilirubin Neg (NEG) Urine Urobilinogen Dipstick 0.2 mg/dL (0.2 mg/dL) Urine Leukocyte Esterase Neg (NEG) Urine RBC 1-2 /HPF (0-2) Urine WBC 1-4 /HPF (0-4) Urine Squamous Epithelial Cells Few /LPF Urine Bacteria Mod /HPF (0-FEW) Urine Opiates Screen Pos (NEG) Urine Methadone Screen Neg (NEG) Urine Barbiturates Neg (NEG) Urine Phencyclidine Screen Neg (NEG) Urine Amphetamine/Methamphetamine Neg (NEG) Urine Benzodiazepines Screen Pos (NEG) Urine Cocaine Screen Neg (NEG) Urine Cannabinoids Screen Neg (NEG) Urine Ethyl Alcohol Neg (NEG) Bedside Urine HCG, Qualitative hcg negative (Negative) Brief Hospital Course Ms. Birmingham is a 33 old who presented with elevated glucoses at home. Has a history of diabetes with last . Not on currently any antidiabetic meds. Patient also complaining of recent upper respiratory infection. Discharge Information Condition at Discharge: Improved, Stable Disposition/Orders: D/C to Home Dischare Medications Current Medications Sodium Chloride 1,000 ml @ 1,000 mls/hr Q1H IV Last administered on 01/17/19at 21:39; Admin Dose 1,000 MLS/HR; Start 01/17/19 at 20:36; Stop 01/17/19 at 21:35 ; Status DC Lactated Ringer's 1,000 ml @ 1,000 mls/hr 1X ONCE IV Last administered on at 00:51; Admin Dose 1,000 MLS/HR; Start 01/18/19 at 00:00; Stop 01/18/19 at 01:28; Status DC Active Scripts Active Zofran (Ondansetron Hcl) 8 Mg Tablet 8 Mg PO QIDPRN PRN Tylenol With Codeine #3 Tablet (Acetaminophen With Codeine) 1 Each Tablet 1 Tab PO Q4-6HRS Zofran (Ondansetron Hcl) 4 Mg Tablet 1 Tab PO Q6HRS Bactrim Ds Tablet (Sulfamethoxazole/Trimethoprim) 1 Each Tablet 1 Tab PO BID Flagyl (Metronidazole) 500 Mg Tablet 1 Tab PO TID 7 Days Orphenadrine Citrate 100 Mg Tablet.er 1 Tab PO BID PRN Tramadol Hcl (Tramadol HCl) 50 Mg Tablet 50 Mg PO PRN Q6HRS PRN Percocet 5-325 Mg Tablet (Oxycodone Hcl/Acetaminophen) 1 Each Tablet 1-2 Tab PO Q4-6HRS Potassium Chloride 10 Meq Tablet.er 20 Meq PO DAILY 5 Days Zofran Odt (Ondansetron) 4 Mg Tab.rapdis 1 Tab SL Q8HRS Harris 5-325 Tablet (Hydrocodone Bit/Acetaminophen) 1 Each Tablet 1 Tab PO PRN Q6HRS PRN Harris 5-325 Tablet (Hydrocodone Bit/Acetaminophen) 1 Each Tablet 1 Tab PO PRN Q6HRS PRN 5 Days Pyridium (Phenazopyridine Hcl) 100 Mg Tablet 100 Mg PO TID Cipro (Ciprofloxacin Hcl) 500 Mg Tablet 1 Tab PO BID Zithromax (Azithromycin) 250 Mg Tablet 250 Mg PO DAILY 5 Days Prednisone 50 Mg Tablet 60 Mg PO DAILY 5 Days Reported Mucinex (Guaifenesin) 600 Mg Tablet.er Unknown Dose PO [Dayquil] Unknown Dose JORGE LUIS SALES MD Jan 17, 2019 20:35
[2019-01-17] MEDS ORDERED: IV NORMAL SALINE 1,000ML 1,000 ML IV SCH (20:36)
[2019-01-17 21:41] LABS: BASO # 0.1 x10^3/uL (0.0-0.2); BASO % 1 % (0-3); EOS # 0.2 x10^3/uL (0.0-0.7); EOS % 3 % (0-3); HEMATOCRIT 39.3 % (36.0-47.0); HEMOGLOBIN 13.3 g/dL (12.0-15.5); LYMPH # 2.7 x10^3/uL (1.0-4.8); LYMPH % 39 % (24-48); MEAN CORPUSCULAR HEMOGLOBIN 31 pg (25-35); MEAN CORPUSCULAR HGB CONC 34 g/dL (31-37); MEAN CORPUSCULAR VOLUME 91 fL (79-100); MONO # 0.5 x10^3/uL (0.0-1.1); MONO % 8 % (0-9); NEUT # 3.5 x10^3uL (1.8-7.7); NEUT % 50 % (31-73); PLATELET COUNT 228 x10^3/uL (140-400)
[2019-01-17 21:56] LABS: ALBUMIN 3.6 g/dL (3.4-5.0); CALCIUM 8.3 mg/dL (8.5-10.1); CREATININE 0.7 mg/dL (0.6-1.0); DIRECT BILIRUBIN 0.1 mg/dL (0.0-0.2); GFR 97.6; MAGNESIUM 2.1 mg/dL (1.8-2.4); POTASSIUM 3.8 mmol/L (3.5-5.1); TOTAL BILIRUBIN 0.1 mg/dL (0.2-1.0); TOTAL PROTEIN 7.4 g/dL (6.4-8.2)
--- NOTE | 2019-01-17 22:59 | EKG ---
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
[2019-01-17 23:28] LABS: BARBITURATES NEG (NEG); BENZODIAZEPINES POS (NEG); CANNABINOIDS NEG (NEG); COCAINE NEG (NEG); METHADONE NEG (NEG); OPIATES POS (NEG); PHENCYCLIDINE NEG (NEG)
[2019-01-17 23:31] LABS: AMPHETAMINE/METHAMPHETAMINE NEG (NEG); BILIRUBIN,URINE NEG (NEG); CLARITY,URINE HAZY; COLOR,URINE YELLOW; GLUCOSE,URINE 100 mg/dL (NEG)
[2019-01-17 23:32] LABS: BACTERIA,URINE MOD /HPF (0-FEW); NITRITE,URINE NEG (NEG); SQUAMOUS EPITHELIAL CELL,UR FEW /LPF; UROBILINOGEN,URINE 0.2 mg/dL (0.2 mg/dL)
[2019-01-18] MEDS ORDERED: IV RINGERS SOLUTION,LACTATED 1,000 ML IV ONE
[2019-01-18 02:40] VITALS: BP 117/79
[2019-01-18] MEDS ORDERED: ONDA8TAB9 PO (02:42)
== END 2019-01-18 02:52 | disposition home or self-care (01) ==
LOC: ER 20:26
DX: E11.65 Type 2 diabetes mellitus with hyperglycemia (principal); E86.0 Dehydration; B34.9 Viral infection, unspecified; F41.9 Anxiety disorder, unspecified; F17.210 Nicotine dependence, cigarettes, uncomplicated; I10 Essential (primary) hypertension; Z88.6 Allergy status to analgesic agent; Z88.8 Allergy status to other drugs, medicaments and biological substances; Z91.018 Allergy to other foods
CPT/HCPCS: 36415; 80048; 80076; 80307; 81001; 81025; 83735; 84443; 84484; 85025; 87086; 93005; 96360; 96361; 99284; J7120; J7030

== ENCOUNTER 2019-03-02 15:24 | Emergency (ER) | payer OTHER ==
[~2019-03-02] VITALS: Ht 157.5 cm; Wt 94.0 kg
[~2019-03-02 15:24] MED LIST changes: +ONDA8TAB9 PO
[2019-03-02] MEDS ORDERED: methylPREDNISolone SOD SUCC PF 125 MG/2 ML VIAL. ONE (15:36)
[2019-03-02] MEDS ORDERED: diphenhydrAMINE 50 MG/ML VIAL IVP ONE (15:45)
[2019-03-02] MEDS ORDERED: FAMOTIDINE 20 MG/2 ML VIAL IVP ONE (15:45)
--- NOTE | 2019-03-02 15:53 | PHYS DOC ---
Past History Past Medical History: Anxiety, Diabetes, Hypertension Past Surgical History: Tubal ligation Smoking: Cigarettes Alcohol Use: None Drug Use: None Adult General Chief Complaint Chief Complaint: ALLERGIC REACTION HPI HPI Patient is a 33-year-old female who presents with an allergic reaction. She has for the past 30 minutes been feeling itchy and scratchy both on her skin as well as in her throat. She took 2 Benadryl prior to coming in without relief. This started shortly after eating hot dogs as well as strawberries. No difficulty breathing. No nausea or vomiting. No rash has been noted, just feeling itchy on her skin. Nothing seems to make this better or worse.[] Review of Systems Review of Systems Constitutional: Denies fever or chills [] Eyes: Denies change in visual acuity, redness, or eye pain [] HENT: Denies nasal congestion, see history of present illness[] Respiratory: Denies cough or shortness of breath [] Cardiovascular: No additional information not addressed in HPI [] GI: Denies abdominal pain, nausea, vomiting, bloody stools or diarrhea [] : Denies dysuria or hematuria [] Musculoskeletal: Denies back pain or joint pain [] Integument: Denies rash or skin lesions, see history of present illness [] Neurologic: Denies headache, focal weakness or sensory changes [] Endocrine: Denies polyuria or polydipsia [] All other systems were reviewed and found to be within normal limits, except as documented in this note. Current Medications Current Medications Current Medications Medications (Trade) Dose Ordered Sig/Ifrah Start Time Stop Time Status Last Admin Dose Admin Methylprednisolone Sodium Succinate (SOLU-Medrol 125MG VIAL) 125 mg STK-MED ONCE 03/02/19 15:36 03/02/19 15:37 DC Allergies Allergies Allergies Coded Allergies Type Severity Reaction Last Updated Verified aspirin Allergy Severe SWELL 06/20/18 Yes ibuprofen Allergy Severe SWELL 06/20/18 Yes ketorolac Allergy Severe SWELL 06/20/18 Yes naproxen Allergy Severe SWELL 06/20/18 Yes fentanyl Allergy Intermediate itching 06/20/18 Yes kiwi Allergy Intermediate Itching 06/20/18 Yes Physical Exam Physical Exam Constitutional: Well developed, well nourished, no acute distress, non-toxic appearance. [] HENT: Normocephalic, atraumatic, bilateral external ears normal, oropharynx moist, no oral exudates, nose normal. Mallampati 2 [] Eyes: PERRLA, EOMI, conjunctiva normal, no discharge. [] Neck: Normal range of motion, no tenderness, supple, no stridor. [] Cardiovascular:Heart rate regular rhythm, no murmur [] Lungs & Thorax: Bilateral breath sounds clear to auscultation [] Abdomen: Bowel sounds normal, soft, no tenderness, no masses, no pulsatile masses. [] Skin: Warm, dry, no erythema, no rash. [] Back: No tenderness, no CVA tenderness. [] Extremities: No tenderness, no cyanosis, no clubbing, ROM intact, no edema. [] Neurologic: Alert and oriented X 3, normal motor function, normal sensory function, no focal deficits noted. [] Psychologic: Affect normal, judgement normal, mood normal. [] EKG EKG [] Radiology/Procedures Radiology/Procedures [] Course & Med Decision Making Course & Med Decision Making Pertinent Labs and Imaging studies reviewed. (See chart for details) ED course: Patient arrived, was placed in bed, and tolerated exam well. She was given IV diphenhydramine, Solu-Medrol, and Pepcid which improved her symptoms. Lungs continued to be clear to auscultation. She was discharged in improved condition. Medical decision making: Believe this to be an allergic reaction to strawberries given that there is some cross-reactivity to kiwi fruit regarding allergens. Also given that there was potentially to systems involved with her throat as well as the itching of the skin a prescription for epinephrine is being given. There is no evidence of anaphylactic shock. No evidence of staph scalded skin syndrome, toxic epidermal necrolysis, [place] spotted fever , nor other significant skin emergency.[] Dragon Disclaimer Dragon Disclaimer This electronic medical record was generated, in whole or in part, using a voice recognition dictation system. Departure Departure: Impression: Primary Impression: Food allergy Disposition: HOME, SELF-CARE Condition: IMPROVED Referrals: DERRELL GRECOC (PCP) Follow-up in 2 days Patient Instructions: Food Allergy and Anaphylaxis Additional Instructions: Follow-up with your regular doctor in 2 days. Do not eat anymore strawberries. Return to the ER if worsening allergic reaction, difficulty breathing, or any other concerns. Scripts Famotidine (PEPCID) 20 Mg Tablet 1 TAB PO BID for allergic reaction, #20 TAB 0 Refills Prov: THAI SANDS DO 03/02/19 Hydroxyzine Hcl (HYDROXYZINE HCL) 25 Mg Tablet 1 TAB PO TID for allergic reaction, #30 TAB Prov: THAI SANDS DO 03/02/19 Prednisone (PREDNISONE) 50 Mg Tablet 1 TAB PO DAILY for INFLAMMATION, #5 TAB Prov: THAI SANDS DO 03/02/19 Epinephrine (Epipen) 0.3 Mg/0.3 Ml Auto.injct 0.3 MG IJ 1X for anaphylaxis, #1 SYR Prov: THAI SANDS DO 03/02/19 THAI SANDS DO Mar 02, 2019 15:53
[2019-03-02] MEDS ORDERED: methylPREDNISolone SOD SUCC PF 125 MG/2 ML VIAL. IV ONE (16:00)
[2019-03-02] MEDS ORDERED: IV NORMAL SALINE 1,000ML 1,000 ML IV ONE (16:00)
[2019-03-02 16:17] VITALS: BP 133/78
[2019-03-02] MEDS ORDERED: FAMO-63 PO (16:31)
[2019-03-02] MEDS ORDERED: PRED50TA PO (16:31)
[2019-03-02] MEDS ORDERED: HYDR25TA PO (16:31)
[2019-03-02] MEDS ORDERED: EPIN0.3A3 IJ (16:31)
== END 2019-03-02 16:35 | disposition home or self-care (01) ==
LOC: ER 15:24
DX: T78.1XXA Other adverse food reactions, not elsewhere classified, initial encounter (principal); L29.9 Pruritus, unspecified; F41.9 Anxiety disorder, unspecified; E11.9 Type 2 diabetes mellitus without complications; I10 Essential (primary) hypertension; F17.210 Nicotine dependence, cigarettes, uncomplicated; Z88.6 Allergy status to analgesic agent; Z88.8 Allergy status to other drugs, medicaments and biological substances; Z91.018 Allergy to other foods; X58.XXXA Exposure to other specified factors, initial encounter
CPT/HCPCS: 96374; 96375; 99283; J1200; J2930; J3490; J7030

== ENCOUNTER 2019-11-28 19:56 | Emergency (ER) | payer SELFPAY ==
[~2019-11-28] VITALS: Ht 157.5 cm; Wt 98.0 kg
[~2019-11-28 19:56] MED LIST changes: +EPIN0.3A3 IJ; +FAMO-63 PO; +HYDR25TA PO
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
[2019-11-28 21:20] VITALS: BP 158/107
[2019-11-28 22:38] LABS: BACTERIA,URINE FEW /HPF (0-FEW); BILIRUBIN,URINE NEG (NEG); CLARITY,URINE HAZY; COLOR,URINE AMBER; GLUCOSE,URINE NEG (NEG); NITRITE,URINE NEG (NEG); SQUAMOUS EPITHELIAL CELL,UR FEW /LPF; UROBILINOGEN,URINE 0.2 mg/dL (0.2 mg/dL)
[2019-11-28 22:39] LABS: BARBITURATES NEG (NEG); BENZODIAZEPINES POS (NEG); CANNABINOIDS NEG (NEG); COCAINE NEG (NEG); METHADONE NEG (NEG); OPIATES NEG (NEG); PHENCYCLIDINE NEG (NEG)
[2019-11-28 22:41] LABS: AMPHETAMINE/METHAMPHETAMINE NEG (NEG)
[2019-11-28] MEDS ORDERED: CYCLOBENZAPRINE 10 MG TABLET. PO ONE (22:45)
[2019-11-28] MEDS ORDERED: oxyCODONE/APAP 5/325 1 TAB TABLET PO ONE (22:45)
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
[2019-11-29] MEDS ORDERED: CYCL5TAB PO (00:20)
== END 2019-11-29 00:30 | disposition home or self-care (01) ==
LOC: ER 19:56
DX: S06.0X0A Concussion without loss of consciousness, initial encounter (principal); S10.93XA Contusion of unspecified part of neck, initial encounter; S30.0XXA Contusion of lower back and pelvis, initial encounter; S20.229A Contusion of unspecified back wall of thorax, initial encounter; I10 Essential (primary) hypertension; F17.210 Nicotine dependence, cigarettes, uncomplicated; Z88.6 Allergy status to analgesic agent; Z91.018 Allergy to other foods; Z88.8 Allergy status to other drugs, medicaments and biological substances; Y08.89XA Assault by other specified means, initial encounter; Y93.89 Activity, other specified; Y92.89 Other specified places as the place of occurrence of the external cause; Y99.8 Other external cause status
CPT/HCPCS: 36415; 70450; 71046; 72100; 72125; 80307; 81001; 81025; 87086; 99285-25

== ENCOUNTER → 2020-02-25 | Outpatient (CLI) | payer OTHER ==
[~2020-02-25] MED LIST changes: +CYCL5TAB PO
[2020-02-25 17:49] LABS: BASO # 0.1 x10^3/uL (0.0-0.2); BASO % 1 % (0-3); EOS # 0.1 x10^3/uL (0.0-0.7); EOS % 2 % (0-3); HEMATOCRIT 42.1 % (36.0-47.0); HEMOGLOBIN 14.4 g/dL (12.0-15.5); LYMPH % 36 % (24-48); MEAN CORPUSCULAR HEMOGLOBIN 32 pg (25-35); MEAN CORPUSCULAR HGB CONC 34 g/dL (31-37); MEAN CORPUSCULAR VOLUME 93 fL (79-100); MONO # 0.4 x10^3/uL (0.0-1.1); MONO % 5 % (0-9); NEUT # 4.8 x10^3uL (1.8-7.7); NEUT % 57 % (31-73); PLATELET COUNT 253 x10^3/uL (140-400); RED BLOOD COUNT 4.53 x10^6/uL (3.50-5.40); RED CELL DISTRIBUTION WIDTH 13.3 % (11.5-14.5); WHITE BLOOD COUNT 8.3 x10^3/uL (4.0-11.0)
[2020-02-25 18:00] LABS: ALBUMIN 3.8 g/dL (3.4-5.0); ALBUMIN/GLOBULIN RATIO 0.8 (1.0-1.7); CALCIUM 9.3 mg/dL (8.5-10.1); CREATININE 0.9 mg/dL (0.6-1.0); GFR 72.6; POTASSIUM 3.9 mmol/L (3.5-5.1); TOTAL BILIRUBIN 0.2 mg/dL (0.2-1.0); TOTAL PROTEIN 8.3 g/dL (6.4-8.2)
[2020-02-25 18:11] LABS: BACTERIA,URINE 0 /HPF (0-FEW); BILIRUBIN,URINE NEG (NEG); CLARITY,URINE CLEAR; COLOR,URINE YELLOW; GLUCOSE,URINE >=1000 mg/dL (NEG); NITRITE,URINE NEG (NEG); RBC,URINE OCC /HPF (0-2); SQUAMOUS EPITHELIAL CELL,UR OCC /LPF; UROBILINOGEN,URINE 0.2 mg/dL (0.2 mg/dL)
[2020-02-26 14:40] LABS: HDLC 26 mg/dL (40-60); THYROID STIM HORMONE (TSH) 1.143 uIU/mL (0.358-3.740); TRIGLYCERIDES 649 mg/dL (0-150); VLDLC 129 mg/dL (0-40)
== END ==
LOC: PMG 16:24
PROVIDERS: ATTEND Registered Nurse
DX: M79.89 Other specified soft tissue disorders (principal); M25.50 Pain in unspecified joint; E55.9 Vitamin D deficiency, unspecified; Z13.6 Encounter for screening for cardiovascular disorders; Z13.29 Encounter for screening for other suspected endocrine disorder
CPT/HCPCS: 36415; 80053; 80061; 81001; 82043; 82570; 82607; 83036; 84443; 84480; 85025

== ENCOUNTER → 2020-02-27 | Outpatient (CLI) | payer OTHER ==
[2020-02-27 16:03] LABS: ALBUMIN 3.6 g/dL (3.4-5.0); ALBUMIN/GLOBULIN RATIO 0.8 (1.0-1.7); CALCIUM 9.4 mg/dL (8.5-10.1); CREATININE 0.9 mg/dL (0.6-1.0); GFR 72.6; POTASSIUM 3.8 mmol/L (3.5-5.1); TOTAL BILIRUBIN 0.1 mg/dL (0.2-1.0); TOTAL PROTEIN 7.9 g/dL (6.4-8.2)
== END | disposition home or self-care (01) ==
LOC: LAB 15:05
PROVIDERS: ATTEND Registered Nurse
DX: Z13.6 Encounter for screening for cardiovascular disorders (principal)
CPT/HCPCS: 36415; 80053

== ENCOUNTER → 2020-04-28 | Outpatient (CLI) | payer OTHER ==
[2020-04-28 12:38] LABS: BASO # 0.1 x10^3/uL (0.0-0.2); BASO % 1 % (0-3); EOS # 0.1 x10^3/uL (0.0-0.7); EOS % 2 % (0-3); HEMATOCRIT 41.2 % (36.0-47.0); LYMPH # 2.6 x10^3/uL (1.0-4.8); LYMPH % 41 % (24-48); MEAN CORPUSCULAR HEMOGLOBIN 31 pg (25-35); MEAN CORPUSCULAR HGB CONC 34 g/dL (31-37); MEAN CORPUSCULAR VOLUME 93 fL (79-100); MONO # 0.3 x10^3/uL (0.0-1.1); MONO % 5 % (0-9); NEUT # 3.2 x10^3uL (1.8-7.7); NEUT % 51 % (31-73); PLATELET COUNT 232 x10^3/uL (140-400); RED BLOOD COUNT 4.46 x10^6/uL (3.50-5.40); WHITE BLOOD COUNT 6.4 x10^3/uL (4.0-11.0)
[2020-04-28 18:28] LABS: ALBUMIN 3.8 g/dL (3.4-5.0); CALCIUM 9.1 mg/dL (8.5-10.1); GLUCOSE 117 mg/dL (70-99); TOTAL PROTEIN 7.5 g/dL (6.4-8.2)
[2020-04-28 18:29] LABS: ALK PHOS 79 U/L (46-116); BLOOD UREA NITROGEN 5 mg/dL (7-20); BUN/CREATININE RATIO 6 (6-20); CREATININE 0.9 mg/dL (0.6-1.0); GFR 72.6; TOTAL BILIRUBIN 0.3 mg/dL (0.2-1.0)
[2020-04-28 18:30] LABS: ALT (SGPT) 73 U/L (14-59); ANION GAP 12 (6-14); AST (SGOT) 65 U/L (15-37); CARBON DIOXIDE 26 mmol/L (21-32); CHLORIDE 104 mmol/L (98-107); POTASSIUM 3.3 mmol/L (3.5-5.1); SODIUM 142 mmol/L (136-145)
[2020-04-28 18:32] LABS: VAL ACID 42 mcg/mL (50-100)
[2020-04-29 00:07] LABS: HEMOGLOBIN A1C 7.3 % (4.8-5.6)
[2020-04-29 16:06] LABS: THYROID STIM HORMONE (TSH) 1.017 uIU/mL (0.358-3.740)
== END | disposition home or self-care (01) ==
LOC: LAB 11:23
PROVIDERS: ATTEND Nurse Practitioner Family
DX: Z79.899 Other long term (current) drug therapy (principal); M25.511 Pain in right shoulder; M54.2 Cervicalgia
CPT/HCPCS: 36415; 80053; 80061; 80164; 83036; 84439; 84443; 84480; 85025

== ENCOUNTER 2020-06-30 20:51 | Emergency (ER) | payer OTHER ==
[~2020-06-30] VITALS: Ht 157.5 cm; Wt 94.0 kg
--- NOTE | 2020-06-30 20:57 | PHYS DOC ---
Past History Past Medical History: Anxiety, Depression, Diabetes, Hypertension Past Surgical History: Tubal ligation Smoking: Cigarettes Alcohol Use: None Drug Use: None General Adult EDM: Chief Complaint: HYPOGLYCEMIA HPI: HPI: "..I was at [employer]... and felt like I was getting low blood sugars.....ramos hunt.. I am better now..." Patient is a 34 year old female who presents with above hx and complaints of feelings of being hypoglycemic and anxiety. Patient has no history of diabetes. Patient does not have hypoglycemia unawareness. Patient is not taking any new meds. Has been compliant with her home meds. Patient denies any dyspnea, chest pain, or dysrhythmia. Patient does have a history of anxiety disorder, diabetes, hypertension. Patient does smoke cigarettes. Patient's had a previous tubal ligation. Patient's prior episodes of hyper glycemia during her . Patient not currently on any oral meds or insulin for her diabetes. Patient denies any specific ill contacts. No recent travel outside the [place] area. No history immunosuppression. Review of Systems: Review of Systems: Constitutional: Denies fever or chills Eyes: Denies change in visual acuity HENT: Denies nasal congestion or sore throat Respiratory: Denies cough or shortness of breath Cardiovascular: Denies chest pain or edema GI: Denies abdominal pain, nausea, vomiting, bloody stools or diarrhea : Denies dysuria Musculoskeletal: Denies back pain or joint pain Integument: Denies rash Neurologic: Denies headache, focal weakness or sensory changes Endocrine: Denies polyuria or polydipsia . Complains she felt like she was hypoglycemic. Has history of gestational diabetes Lymphatic: Denies swollen glands Psychiatric: Complains of anxiety Heart Score: HEART Score for Chest Pain: HEART Score for Chest Pain Response (Comments) Value History Slighlty/Non-Suspicious 0 ECG Normal 0 Age < 45 0 Risk Factors 1 or 2 Risk Factors 1 Troponin < Normal Limit 0 Total 1 Risk Factors: Risk Factors: DM, Current or recent (<one month) smoker, HTN, HLP, family history of CAD, obesity. Risk Scores: Score 0 - 3: 2.5% MACE over next 6 weeks - Discharge Home Score 4 - 6: 20.3% MACE over next 6 weeks - Admit for Clinical Observation Score 7 - 10: 72.7% MACE over next 6 weeks - Early Invasive Strategies Family History: Family History: Diabetes and hypertension Current Medications: Current Meds: See nursing for home meds Allergies: Allergies: Allergies Coded Allergies Type Severity Reaction Last Updated Verified aspirin Allergy Severe SWELL 06/20/18 Yes ibuprofen Allergy Severe SWELL 06/20/18 Yes ketorolac Allergy Severe SWELL 06/20/18 Yes naproxen Allergy Severe SWELL 06/20/18 Yes strawberry Allergy Severe 03/02/19 Yes fentanyl Allergy Intermediate itching 06/20/18 Yes kiwi Allergy Intermediate Itching 06/20/18 Yes Physical Exam: PE: Constitutional: no acute distress, non-toxic appearance. [] HENT: Normocephalic, atraumatic, bilateral external ears normal, oropharynx moist, no oral exudates, nose normal. [] Eyes: PERRLA, EOMI, conjunctiva normal, no discharge. [] Neck: Normal range of motion, no tenderness, supple, no stridor. [] Cardiovascular: Tachycardia heart rate regular rhythm, no murmur [] Lungs & Thorax: Bilateral breath sounds equal apex with few scattered wheezes auscultation [] Abdomen: Bowel sounds normal, soft, no tenderness, no masses, no pulsatile masses. Obese. Small surgery scars Skin: Warm, dry, no erythema, no rash. [] Back: No tenderness, no CVA tenderness. [] Extremities: No tenderness, no cyanosis, no clubbing, ROM intact, no edema. [] Neurologic: Alert and oriented X 3, normal motor function, normal sensory function, no focal deficits noted. DTRs +2 patella brachial. Ambulatory without problems. Psychologic: Affect anxious, judgement normal, mood normal. [] EKG: EKG: My interpretation EKG shows a sinus rhythm at 98 bpm. No findings of acute STEMI of contralateral changes. [] Radiology/Procedures: Radiology/Procedures: [] Course & Med Decision Making: Course & Med Decision Making Pertinent Labs and Imaging studies reviewed. (See chart for details) Eat regular times. Follow up with primary. Return if any concerns. Patient to keep records of her glucose levels before eating 4 times a day. Document these in a notebook. Show it to primary care on follow-up. Follow-up and review ED evaluation and labs. Follow-up pending labs. Return if any concerns. Impression: 1. DM- Glucose 141 2. Subjective symptoms of Hypoglycemia 3. Elevated LFT AST96 , ALT 70 4. Hx. of Anxiety 5. Hx. Tobacco Use 6. Hx.of Hypertension [] Dragon Disclaimer: Dragon Disclaimer: This electronic medical record was generated, in whole or in part, using a voice recognition dictation system. Departure Departure: Disposition: HOME/RESIDENCE PRIOR TO ADM Condition: STABLE Referrals: SHANEKA LEE (PCP) Justification of Admission: Justification of Admission: Justification of Admission Dx: N/A Dragon Disclaimer This chart was dictated in whole or in part using Voice Recognition software in a busy, high-work load, and often noisy Emergency Department environment. It m ay contain unintended and wholly unrecognized errors or omissions. JORGE LUIS SALES MD Jun 30, 2020 20:57
[2020-06-30] MEDS ORDERED: IV RINGERS SOLUTION,LACTATED 1,000 ML IV SCH (20:58)
--- NOTE | 2020-06-30 21:38 | EKG ---
[address] [address] Test Date: 2020-06-30 Test Time: 21:11:59 Pat Name: NARA CARSON Department: Room: Gender: F [employer]: : 1985 Requested By: JORGE LUIS SALES Order Number: [id number] Reading MD: Harjinder Molina MD Measurements Intervals Silex Rate: 98 P: -52 SC: 134 QRS: 28 QRSD: 84 T: 9 QT: 336 QTc: 431 Interpretive Statements SINUS RHYTHM Electronically Signed On 07-01-2020 8:55:56 CDT by Harjinder Molina MD
[2020-06-30 21:52] LABS: BARBITURATES NEG (NEG); BENZODIAZEPINES POS (NEG); CANNABINOIDS NEG (NEG); COCAINE NEG (NEG); METHADONE NEG (NEG); OPIATES NEG (NEG); PHENCYCLIDINE NEG (NEG)
[2020-06-30 21:58] LABS: AMPHETAMINE/METHAMPHETAMINE NEG (NEG)
[2020-06-30 22:13] LABS: CALCIUM 9.4 mg/dL (8.5-10.1); CREATININE 0.9 mg/dL (0.6-1.0); GFR 72.6; POTASSIUM 3.6 mmol/L (3.5-5.1)
[2020-06-30 22:28] LABS: DIRECT BILIRUBIN 0.1 mg/dL (0.0-0.2); TOTAL BILIRUBIN 0.3 mg/dL (0.2-1.0); TOTAL PROTEIN 7.6 g/dL (6.4-8.2)
[2020-06-30 22:32] LABS: BACTERIA,URINE 0 /HPF (0-FEW); BILIRUBIN,URINE NEG (NEG); CLARITY,URINE HAZY; COLOR,URINE YELLOW; GLUCOSE,URINE NEG (NEG); NITRITE,URINE NEG (NEG); RBC,URINE OCC /HPF (0-2); SQUAMOUS EPITHELIAL CELL,UR MANY /LPF; UROBILINOGEN,URINE 0.2 mg/dL (0.2 mg/dL); WBC,URINE OCC /HPF (0-4)
[2020-06-30 22:49] LABS: BASO % 1 % (0-3); EOS # 0.2 x10^3/uL (0.0-0.7); EOS % 2 % (0-3); HEMATOCRIT 42.2 % (36.0-47.0); HEMOGLOBIN 14.4 g/dL (12.0-15.5); LYMPH # 2.9 x10^3/uL (1.0-4.8); LYMPH % 34 % (24-48); MEAN CORPUSCULAR HEMOGLOBIN 32 pg (25-35); MEAN CORPUSCULAR HGB CONC 34 g/dL (31-37); MEAN CORPUSCULAR VOLUME 93 fL (79-100); MONO # 0.5 x10^3/uL (0.0-1.1); MONO % 6 % (0-9); NEUT # 4.9 x10^3uL (1.8-7.7); NEUT % 58 % (31-73); PLATELET COUNT 227 x10^3/uL (140-400); RED BLOOD COUNT 4.54 x10^6/uL (3.50-5.40); RED CELL DISTRIBUTION WIDTH 13.8 % (11.5-14.5); WHITE BLOOD COUNT 8.5 x10^3/uL (4.0-11.0)
[2020-07-01 00:36] VITALS: BP 135/88
== END 2020-07-01 00:55 | disposition home or self-care (01) ==
LOC: ER 20:51
DX: E11.649 Type 2 diabetes mellitus with hypoglycemia without coma (principal); R79.89 Other specified abnormal findings of blood chemistry; F41.9 Anxiety disorder, unspecified; I10 Essential (primary) hypertension; F32.9 Major depressive disorder, single episode, unspecified; F17.210 Nicotine dependence, cigarettes, uncomplicated; Z88.6 Allergy status to analgesic agent; Z88.8 Allergy status to other drugs, medicaments and biological substances; Z91.018 Allergy to other foods
CPT/HCPCS: 36415; 80048; 80061; 80076; 80307; 81001; 81025; 82550; 82947; 83880; 84484; 85025; 86705; 86709; 86803; 87340; 93005; 96360; 99285; J7120

== ENCOUNTER → 2020-07-27 | Outpatient (CLI) | payer OTHER ==
[2020-07-01 00:36] VITALS: BP 135/88
[2020-07-27 09:54] LABS: VAL ACID 23 mcg/mL (50-100)
[2020-07-28 02:07] LABS: HEMOGLOBIN A1C 6.6 % (4.8-5.6)
== END | disposition home or self-care (01) ==
LOC: LAB 08:43
PROVIDERS: ATTEND Nurse Practitioner Family
DX: Z79.899 Other long term (current) drug therapy (principal)
CPT/HCPCS: 36415; 80164; 83036

== ENCOUNTER 2020-08-08 14:19 | Emergency (ER) | payer OTHER ==
[~2020-08-08] VITALS: Ht 160 cm; Wt 86.4 kg
[2020-08-08 14:19] VITALS: BP 160/105
[2020-08-08] MEDS ORDERED: ACETAMINOPHEN 325 MG TABLET PO ONE (14:45)
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
--- NOTE | 2020-08-08 15:26 | RAD ---
Study: 1. CR SHOULDER 2+V RIGHT 2. CR WRIST 3V RIGHT 3. CR ELBOW RIGHT 3V Indication: Fall. Comparison: None recently. Findings: Shoulder: Normal glenohumeral and acromioclavicular joint alignment. Vertically oriented lucency projecting over the scapular body is artifactual. No significant arthrosis. Incidental note made of a small cervical rib on the right. Elbow: Normal alignment. No acute fracture. No elbow joint effusion to suggest occult osseous injury. Wrist: Normal alignment. No acute fracture. Maintained joint spaces. Impression: Right shoulder/elbow/wrist: No acute fracture or traumatic malalignment Electronically signed by: MILTON PADRON MD (08/08/2020 3:23 PM) [id number]
== END 2020-08-08 15:40 | disposition home or self-care (01) ==
LOC: ER 14:19
DX: S63.617A Unspecified sprain of left little finger, initial encounter (principal); S60.221A Contusion of right hand, initial encounter; E11.9 Type 2 diabetes mellitus without complications; K21.9 Gastro-esophageal reflux disease without esophagitis; I10 Essential (primary) hypertension; F17.210 Nicotine dependence, cigarettes, uncomplicated; Z88.6 Allergy status to analgesic agent; Z88.8 Allergy status to other drugs, medicaments and biological substances; Z91.018 Allergy to other foods; W01.0XXA Fall on same level from slipping, tripping and stumbling without subsequent striking against object, initial encounter; Y93.89 Activity, other specified; Y92.89 Other specified places as the place of occurrence of the external cause; Y99.8 Other external cause status
CPT/HCPCS: 73030; 73080; 73110; 73130; 99284

== ENCOUNTER 2020-11-21 19:52 | Emergency (ER) | payer OTHER ==
[~2020-11-21] VITALS: Ht 160 cm; Wt 95.0 kg
--- NOTE | 2020-11-21 19:59 | PHYS DOC ---
Past History Past Medical History: No Pertinent History, Diabetes, GERD, Hypertension Past Surgical History: No Surgical History Smoking: Cigarettes Alcohol Use: None Drug Use: None Adult General Chief Complaint Chief Complaint: WRIST PAIN HPI HPI Patient is a 35-year-old female presents emergency department with left wrist and hand pain reporting that approximately 1 hour prior to arrival she was walking and tripped over her long dress falling forward caught herself against the wall with her left hand. Patient states that her wrist and hand started immediately hurting, patient fears that she may have broke something. Patient denies any other injuries, patient denies falling to the ground, patient denies any dizziness. Patient denies any other health illnesses. Patient denies any numbness or tingling to her left hand or fingers. Patient states she did not take anything for the pain prior to arrival to the ER, patient rates her pain a 6/10 on a 1-10 pain scale. Review of Systems Review of Systems 14 body systems of review of systems have been reviewed. See HPI for pertinent positives and negative responses, otherwise all other systems are negative, nonpertinent or noncontributory. Allergies Allergies Allergies Coded Allergies Type Severity Reaction Last Updated Verified aspirin Allergy Severe SWELL 08/08/20 Yes ibuprofen Allergy Severe SWELL 08/08/20 Yes ketorolac Allergy Severe SWELL 08/08/20 Yes naproxen Allergy Severe SWELL 08/08/20 Yes strawberry Allergy Severe 08/08/20 Yes fentanyl Allergy Intermediate itching 08/08/20 Yes kiwi Allergy Intermediate Itching 06/20/18 Yes Physical Exam Physical Exam Constitutional: Well developed, well nourished, no acute distress, non-toxic appearance. HENT: Normocephalic, atraumatic, bilateral external ears normal, oropharynx moist, no oral exudates, nose normal. Eyes: PERRLA, EOMI, conjunctiva normal, no discharge. Neck: Normal range of motion, no tenderness, supple, no stridor. Cardiovascular:Heart rate regular rhythm, no murmur Lungs & Thorax: Bilateral breath sounds clear to auscultation Abdomen: Bowel sounds normal, soft, no tenderness, no masses, no pulsatile masses. Skin: Warm, dry, no erythema, no rash. Back: No tenderness, no CVA tenderness. Extremities: No tenderness, no cyanosis, no clubbing, ROM intact, no edema. Left wrist limited passive range of motion related patient's pain, no ecchymosis, no swelling noted. No compartment syndrome appreciated. Distal cap refill less than 2 seconds, no loss of movement, neurovascular intact during exam Neurologic: Alert and oriented X 3, normal motor function, normal sensory function, no focal deficits noted. Psychologic: Affect normal, judgement normal, mood normal. EKG EKG [] Radiology/Procedures Radiology/Procedures SEX: F EXAM STATUS: REG ER ORD. PHYSICIAN: GUILLE ALTAMIRANO APRN REASON: FALL, HAND AND WRIST PAIN LEFT PROCEDURE: WRIST 3V LEFT Exam: Left wrist 3 views. Left hand 3 views INDICATION: Fall, hand and wrist pain TECHNIQUE: Frontal, lateral and oblique views of the left hand and wrist Comparisons: None FINDINGS: Wrist: Bone mineralization is normal. No acute or healed fractures. Soft tissues are unremarkable. Joint spaces are well-maintained. Hand: Bone mineralization is normal. No acute or healed fractures. Soft tissues are unremarkable. Joint spaces are well-maintained. IMPRESSION: No acute osseous abnormality of the left hand and left wrist Electronically signed by: Harleen Hairston MD (11/21/2020 8:47 PM) [facility] DICTATED AND SIGNED BY: HARLEEN HAIRSTON MD DATE: 11/21/202043 CC: GUILLE ALTAMIRANO APRN; EMERGENCY,DEPARTMENT; SHANEKA LEE ~MTH0 0 Heart Score Risk Factors: Risk Factors: DM, Current or recent (<one month) smoker, HTN, HLP, family history of CAD, obesity. Risk Scores: Risk Factors: DM, Current or recent (<one month) smoker, HTN, HLP, family history of CAD, obesity. Course & Med Decision Making Course & Med Decision Making Pertinent Labs and Imaging studies reviewed. (See chart for details) 35-year-old female, vital signs reviewed, reports emergency department after injuring left wrist and hand just prior to arrival. An x-ray was ordered. Patient's x-ray of the left hand and wrist was read negative for acute process per house radiologist rotation. Discussed findings with patient, RICE therapy, will use a Velcro wrist splint for protection and comfort while healing from contusion of left wrist and hand. Patient drove self to emergency department, stated that she did not need anything for pain and she would use [id number] Tylenol at home. Patient gave verbal understanding of follow- up with primary care doctor this week if not improving, return to ER precautions and concerns, had no further questions or concerns, discharged to home without incident. A Velcro wrist splint was placed on patient's left hand, reevaluation remained neurovascular intact after splint placement by ED nursing staff. Diagnosis contusion left wrist contusion left hand Dragon Disclaimer Dragon Disclaimer This electronic medical record was generated, in whole or in part, using a voice recognition dictation system. Departure Departure: Impression: Primary Impression: Contusion of left wrist, initial encounter Additional Impression: Contusion of left hand, initial encounter Disposition: 01 DC HOME SELF CARE/HOMELESS Condition: IMPROVED Referrals: SHANEKA LEE (PCP) Patient Instructions: RICE - Routine Care for Injuries, Wrist Pain, Wrist Splint Additional Instructions: Please wear the Velcro wrist splint for comfort while you are contusion of wrist and hand are healing, use Tylenol [id number] for pain and discomfort, follow-up with your primary care physician if pain persists, return to the emergency department for worsening symptoms or other concerns Problem Qualifiers GUILLE ALTAMIRANO APRN Nov 21, 2020 19:59
--- NOTE | 2020-11-21 20:49 | RAD ---
Exam: Left wrist 3 views. Left hand 3 views INDICATION: Fall, hand and wrist pain TECHNIQUE: Frontal, lateral and oblique views of the left hand and wrist Comparisons: None FINDINGS: Wrist: Bone mineralization is normal. No acute or healed fractures. Soft tissues are unremarkable. Joint spa rigoberto are well-maintained. Hand: Bone mineralization is normal. No acute or healed fractures. Soft tissues are unremarkable. Joint spa rigoberto are well-maintained. IMPRESSION: No acute osseous abnormality of the left hand and left wrist Electronically signed by: Radha Cook MD (11/21/2020 8:47 PM) DI
[2020-11-21 21:52] VITALS: BP 135/98
== END 2020-11-21 21:52 | disposition home or self-care (01) ==
LOC: ER 19:52
DX: S60.212A Contusion of left wrist, initial encounter (principal); E11.9 Type 2 diabetes mellitus without complications; K21.9 Gastro-esophageal reflux disease without esophagitis; I10 Essential (primary) hypertension; F17.210 Nicotine dependence, cigarettes, uncomplicated; Z88.6 Allergy status to analgesic agent; Z88.8 Allergy status to other drugs, medicaments and biological substances; Z91.018 Allergy to other foods; W18.09XA Striking against other object with subsequent fall, initial encounter; Y93.89 Activity, other specified; Y92.89 Other specified places as the place of occurrence of the external cause; Y99.8 Other external cause status
CPT/HCPCS: 29125; 73110; 73130; 99284

== ENCOUNTER 2021-05-05 18:10 | Emergency (ER) | payer OTHER ==
[~2021-05-05] VITALS: Ht 157.5 cm; Wt 100.0 kg
[2021-05-05 18:43] VITALS: BP 134/93
[2021-05-05] MEDS ORDERED: IV NORMAL SALINE 1,000ML 1,000 ML IV ONE (19:00)
--- NOTE | 2021-05-05 19:06 | PHYS DOC ---
Past History Past Medical History: Diabetes, Hypertension (GUILLE ALTAMIRANO APRN) Past Surgical History: Tubal ligation Additional Past Surgical Histo: left knee x4 (UGILLE ALTAMIRANO APRN) Smoking: Cigarettes Alcohol Use: None Drug Use: None (GUILLE ALTAMIRANO APRN) Adult General Chief Complaint Chief Complaint: BLOOD SUGAR PROBLEM HPI HPI Patient is a 35-year-old female who presents emergency department requesting a medication refill of her lisinopril, metformin, and Amaryl. Patient states she was unable to get her prescriptions filled as she had to [facility] and go to [place] because of a family emergency. Patient states when she returned she went to her primary care provider's office today to get her medications refilled and was told to come straight to the ER to rule out diabetic ketoacidosis. Patient denies any shortness of breath, numbness or tingling, nausea, vomiting, or diarrhea. Patient denies chest pains, denies increased thirst or increased urination, patient denies urinary tract infection type signs and symptoms, denies vaginal discharge, patient states she is on her menstrual cycle that started 2 days ago. Patient denies any other physical complaints or physical concerns. Patient states her main concern is starting back on her medications as she has been out for the past 6 weeks now. (GUILLE ALTAMIRANO APRN) Review of Systems Review of Systems 14 body systems of review of systems have been reviewed. See HPI for pertinent positives and negative responses, otherwise all other systems are negative, nonpertinent or noncontributory. (GUILLE ALTAMIRANO APRN) Current Medications Current Medications Reviewed patient's medications with patient's pharmacy of choice [facility] as patient was unsure of her medication dosage, [facility] director pharmacy services confirmed patient has recently filled lisinopril 20 mg daily, Metformin 500 mg twice daily, Amaryl 2 mg twice daily, all filled in December 2020. (GUILLE ALTAMIRANO APRN) Allergies Allergies Allergies Coded Allergies Type Severity Reaction Last Updated Verified aspirin Allergy Severe SWELL 08/08/20 Yes ibuprofen Allergy Severe SWELL 08/08/20 Yes ketorolac Allergy Severe SWELL 08/08/20 Yes naproxen Allergy Severe SWELL 08/08/20 Yes strawberry Allergy Severe 08/08/20 Yes fentanyl Allergy Intermediate itching 08/08/20 Yes kiwi Allergy Intermediate Itching 06/20/18 Yes (GUILLE ALTAMIRANO APRN) Physical Exam Physical Exam Constitutional: Well developed, well nourished, no acute distress, non-toxic appearance. 35-year-old female in no apparent distress. HENT: Normocephalic, atraumatic, bilateral external ears normal, oropharynx moist, no oral exudates, nose normal. Eyes: PERRLA, EOMI, conjunctiva normal, no discharge. Neck: Normal range of motion, no tenderness, supple, no stridor. Cardiovascular:Heart rate regular rhythm, no murmur per auscultation. Lungs & Thorax: Bilateral breath sounds clear to auscultation no adventitious lung sounds appreciated. Abdomen: Bowel sounds normal, soft, no tenderness, no masses, no pulsatile ma sses. Skin: Warm, dry, no erythema, no rash. Back: No tenderness, no CVA tenderness. Extremities: No tenderness, no cyanosis, no clubbing, ROM intact, no edema. Neurologic: Alert and oriented X 3, normal motor function, normal sensory function, no focal deficits noted. Psychologic: Affect normal, judgement normal, mood normal. (GUILLE ALTAMIRANO APRN) Current Patient Data Vital Signs Vital Signs Date Time Temp Pulse Resp B/P (MAP) Pulse Ox O2 Delivery O2 Flow Rate FiO2 05/05/21 18:43 98.3 86 18 134/93 (107) Room Air Lab Results Laboratory Tests Test 05/05/21 18:46 05/05/21 19:05 05/05/21 19:08 05/05/21 19:53 Urine Collection Type Unknown Urine Color Yellow Urine Clarity Clear Urine pH 5.5 Urine Specific [place] 1.015 Urine Protein Neg Urine Glucose (UA) 250 mg/dL Urine Ketones (Stick) Neg mg/dL Urine Blood Large Urine Nitrite Neg Urine Bilirubin Neg Urine Urobilinogen Dipstick 0.2 mg/dL Urine Leukocyte Esterase Small Urine RBC >40 /HPF Urine WBC 1-4 /HPF Urine Squamous Epithelial Cells Mod /LPF Urine Bacteria Few /HPF White Blood Count 6.7 x10^3/uL Red Blood Count 4.26 x10^6/uL Hemoglobin 13.7 g/dL Hematocrit 40.1 % Mean Corpuscular Volume 94 fL Mean Corpuscular Hemoglobin 32 pg Mean Corpuscular Hemoglobin Concent 34 g/dL Red Cell Distribution Width 13.4 % Platelet Count 210 x10^3/uL Neutrophils (%) (Auto) 54 % Lymphocytes (%) (Auto) 36 % Monocytes (%) (Auto) 7 % Eosinophils (%) (Auto) 2 % Basophils (%) (Auto) 1 % Neutrophils # (Auto) 3.6 x10^3uL Lymphocytes # (Auto) 2.4 x10^3/uL Monocytes # (Auto) 0.5 x10^3/uL Eosinophils # (Auto) 0.1 x10^3/uL Basophils # (Auto) 0.1 x10^3/uL Sodium Level 136 mmol/L Potassium Level 3.6 mmol/L Chloride Level 99 mmol/L Carbon Dioxide Level 24 mmol/L Anion Gap 13 Blood Urea Nitrogen 6 mg/dL Creatinine 0.9 mg/dL Estimated GFR (Cockcroft-Gault) 72.1 BUN/Creatinine Ratio 7 Glucose Level 292 mg/dL Calcium Level 8.7 mg/dL Total Bilirubin 0.2 mg/dL Aspartate Amino Transf (AST/SGOT) 90 U/L Alanine Aminotransferase (ALT/SGPT) 82 U/L Alkaline Phosphatase 104 U/L Total Protein 8.0 g/dL Albumin 3.7 g/dL Albumin/Globulin Ratio 0.9 Acetone Level Neg Glucose (Fingerstick) 309 mg/dL 211 mg/dL Current Medications Medications (Trade) Dose Ordered Sig/Ifrah Route PRN Reason Start Time Stop Time Status Last Admin Dose Admin Sodium Chloride 1,000 ml @ 1,000 mls/hr 1X ONCE IV 05/05/21 19:00 05/05/21 19:59 05/05/21 19:09 Insulin Human Regular (HumuLIN R VIAL) 10 unit 1X ONCE IV 05/05/21 19:15 05/05/21 19:16 DC 05/05/21 19:25 (GUILLE ALTAMIRANO APRN) EKG EKG [] (GUILLE ALTAMIRANO APRN) Radiology/Procedures Radiology/Procedures [] (GUILLE ALTAMIRANO APRN) Heart Score C/O Chest Pain: No Risk Factors: Risk Factors: DM, Current or recent (<one month) smoker, HTN, HLP, family history of CAD, obesity. Risk Scores: Risk Factors: DM, Current or recent (<one month) smoker, HTN, HLP, family history of CAD, obesity. (GUILLE ALTAMIRANO APRN) Course & Med Decision Making Course & Med Decision Making Pertinent Labs and Imaging studies reviewed. (See chart for details) 35-year-old female, vital signs reviewed, just emergency department requesting a medication refill. Patient physical examination unremarkable, however during interview when revealed that patient was sent here concerning possible DKA by primary care provider, will order a DKA work-up. Patient amenable to this plan. Patient's labs were negative concerning DKA, the patient's urine was not infected, the patient is currently on her menstrual cycle, most likely co ntaminated specimen, there were no nitrites. Discussed findings with patient, will refill prescriptions for 1 months worth to give patient time to make another appointment with her primary care provider for ongoing diabetes and hypertension management. Patient is amenable to this plan. Patient gave verbal understanding of discharge home instructions, follow-up with PCP for ongoing management of health care, return to ER precautions or concerns, patient was discharged home without incident. (GUILLE ALTAMIRANO APRN) Dragon Disclaimer Dragon Disclaimer This electronic medical record was generated, in whole or in part, using a voice recognition dictation system. (GUILLE ALTAMIRANO APRN) Attending Co-Sign The patient was seen and interviewed as well as examined at the bedside. The chart was reviewed. The case was discussed. Agree with the plan of care. (BAO CHILDRESS DO) Departure Departure: Impression: Primary Impression: Medication refill Additional Impression: Feared condition not demonstrated Disposition: 01 HOME / SELF CARE / HOMELESS Condition: GOOD Referrals: SHANEKA LEE (PCP) Additional Instructions: You are seen today in the emergency department for medication refill of your Amaryl, Metformin, lisinopril. You were sent here by your primary care physician to rule out a diabetic ketoacidosis, your labs were drawn and did not show any concerning findings that would suggest diabetic ketoacidosis, you are given 1 L of normal saline and 10 units of IV insulin related to your blood sugar being 309 upon presentation of the emergency department today. Your blood glucose did come down to 211 after treatment. I am prescribing your home medications as you requested. Please follow-up with your primary care provider for ongoing treatment and further prescription management. Please return to the emergency department for worsening symptoms or other concerns. EMERGENCY DEPARTMENT GENERAL DISCHARGE INSTRUCTIONS Thank you for coming to [facility] (ED) today and trusting us with you care. We trust that you had a positivie experience in our Emergency Department. If you wish to speak to the department management, you may call the director at [phone]. YOUR FOLLOW UP INSTRUCTIONS ARE FOLLOWS: 1. Do you have a private Doctor? If you do not have a private doctor, please ask for a resource list of physicians or clinics that may be able to assist you with follow up care. 2. The Emergency Physician has interpreted your x-rays. The X-Ray specialist will also review them. If there is a change in the findings, you will be notified in 48 hours when at all possible. 3. A lab test or culture has been done, your results will be reviewed and you will be notified if you need a change in treatment. ADDITIONAL INSTRUCTIONS AND INFORMATION: 1. Your care today has been supervised by a physician who is specially trained in emergency care. Many problems require more than one evaluation for a complete diagnosis and treatment. We recommend that you schedule your follow up appointment as recommended to ensure complete treatment of you illness or injury. If you are unable to obtain follow up care and continue to have a problem, or if your condition worsens, we recommend that you return to the ED. 2. We are not able to safely determine your condition over the phone nor are we able to give sound medical advice over the phone. For these safety reasons, if you call for medical advice we will ask you to come to the ED for further evaluation. 3. If you have any questions regarding these discharge instructions please call the ED at [phone]. SAFETY INFORMATION: In the interest of safety, wellness, and injury prevention; we encourage you to wear your sealbelt, if you smoke; quite smoking, and we encourage family to use a protective helmet for bicycling and other sporting events that present an increased risk for head injury. IF YOUR SYMPTOMS WORSEN OR NEW SYMPTOMS DEVELOP, OR YOU HAVE CONCERNS ABOUT YOUR CONDITION; OR IF YOUR CONDITION WORSENS WHILE YOU ARE WAITING FOR YOUR FOLLOW UP APPOINTMENT; EITHER CONTACT YOUR PRIMARY CARE DOCTOR, THE PHYSICIAN WHOSE NAME AND NUMBER YOU WERE GIVEN, OR RETURN TO THE ED IMMEDIATELY. Scripts Lisinopril (LISINOPRIL) 20 Mg Tablet 1 TAB PO DAILY for HYPERTENSION CONTROL, #30 TAB 0 Refills Prov: GUILLE ALTAMIRANO APRN 05/05/21 Metformin Hcl (METFORMIN HCL) 500 Mg Tablet 1 TAB PO BID for GLUCOSE CONTROL, #60 TAB 0 Refills Prov: GUILLE ALTAMIRANO APRN 05/05/21 Glimepiride (AMARYL) 1 Mg Tablet 2 TAB PO BID for GLUCOSE CONTROL for 30 Days, #120 TAB 0 Refills Prov: GUILLE ALTAMIRANO APRN 05/05/21 Problem Qualifiers GUILLE ALTAMIRANO APRN May 05, 2021 19:06 BAO CHILDRESS DO May 06, 2021 02:14
[2021-05-05] MEDS ORDERED: INSULIN REGULAR 100 UNIT/ML 3ML VIAL. IV ONE (19:15)
[2021-05-05 19:38] LABS: CALCIUM 8.7 mg/dL (8.5-10.1); CREATININE 0.9 mg/dL (0.6-1.0); GFR 72.1; POTASSIUM 3.6 mmol/L (3.5-5.1)
[2021-05-05 19:44] LABS: ALBUMIN 3.7 g/dL (3.4-5.0); ALBUMIN/GLOBULIN RATIO 0.9 (1.0-1.7); TOTAL BILIRUBIN 0.2 mg/dL (0.2-1.0)
[2021-05-05 19:46] LABS: BASO # 0.1 x10^3/uL (0.0-0.2); BASO % 1 % (0-3); EOS # 0.1 x10^3/uL (0.0-0.7); EOS % 2 % (0-3); HEMATOCRIT 40.1 % (36.0-47.0); HEMOGLOBIN 13.7 g/dL (12.0-15.5); LYMPH # 2.4 x10^3/uL (1.0-4.8); LYMPH % 36 % (24-48); MEAN CORPUSCULAR HEMOGLOBIN 32 pg (25-35); MEAN CORPUSCULAR HGB CONC 34 g/dL (31-37); MEAN CORPUSCULAR VOLUME 94 fL (79-100); MONO # 0.5 x10^3/uL (0.0-1.1); MONO % 7 % (0-9); NEUT # 3.6 x10^3uL (1.8-7.7); NEUT % 54 % (31-73); PLATELET COUNT 210 x10^3/uL (140-400); RED BLOOD COUNT 4.26 x10^6/uL (3.50-5.40); RED CELL DISTRIBUTION WIDTH 13.4 % (11.5-14.5); WHITE BLOOD COUNT 6.7 x10^3/uL (4.0-11.0)
[2021-05-05 19:53] LABS: CLARITY,URINE CLEAR; COLOR,URINE YELLOW
[2021-05-05 19:54] LABS: BILIRUBIN,URINE NEG (NEG); GLUCOSE,URINE 250 mg/dL (NEG); NITRITE,URINE NEG (NEG); UROBILINOGEN,URINE 0.2 mg/dL (0.2 mg/dL)
[2021-05-05 19:55] LABS: BACTERIA,URINE FEW /HPF (0-FEW); RBC,URINE >40 /HPF (0-2); SQUAMOUS EPITHELIAL CELL,UR MOD /LPF
[2021-05-05] MEDS ORDERED: LISI20TA18 PO (20:01)
[2021-05-05] MEDS ORDERED: GLIM1TAB PO (20:01)
[2021-05-05] MEDS ORDERED: METF500T16 PO (20:01)
== END 2021-05-05 20:13 | disposition home or self-care (01) ==
LOC: ER 18:10
DX: I10 Essential (primary) hypertension (principal); E11.9 Type 2 diabetes mellitus without complications; F17.210 Nicotine dependence, cigarettes, uncomplicated; Z98.51 Tubal ligation status; Z76.0 Encounter for issue of repeat prescription; Z88.6 Allergy status to analgesic agent; Z88.5 Allergy status to narcotic agent; Z88.8 Allergy status to other drugs, medicaments and biological substances
CPT/HCPCS: 36415; 80053; 81001; 82010; 82947; 85025; 87086; 96361; 96374; 99283; J1815; J7030; 87077

== ENCOUNTER 2021-09-01 18:04 | Emergency (ER) | payer OTHER ==
[~2021-09-01] VITALS: Ht 157.5 cm; Wt 90.0 kg
[~2021-09-01 18:04] MED LIST changes: +GLIM1TAB PO; +LISI20TA18 PO; +METF500T16 PO
[2021-09-01 18:28] VITALS: BP 162/108
[2021-09-01] MEDS: ACETAMINOPHEN 325 MG TABLET PO ONE (18:46)
--- NOTE | 2021-09-01 18:58 | EKG ---
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
--- NOTE | 2021-09-01 19:02 | PHYS DOC ---
Past History Past Medical History: Anxiety, Diabetes, Hypertension Additional Past Medical Histor: anyerusm (CHRISTOPHER DOSHI) Past Surgical History: Tubal ligation, Other Additional Past Surgical Histo: left knee x4 (CHRISTOPHER DOSHI) Smoking: Cigarettes Alcohol Use: None Drug Use: None (CHRISTOPHER DOSHI) General Adult EDM: Chief Complaint: CHEST PAIN HPI: HPI: Patient is a 36 year old female with history of high blood pressure, diabetes, high cholesterol and anxiety who presents with left shoulder pain and chest pressure beginning 1 hour [employer]. 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 Shortly after, she states that her entire left side became painful and her arm felt heavy. 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 Patient has no prior cardiac history. Patient has no other complaints at this time. (CHRISTOPHER DOSHI) Review of Systems: Review of Systems: Constitutional: Denies fever or chills HEENT: Denies change in visual acuity, nasal congestion or sore throat Respiratory: See HPI Cardiovascular: See HPI GI: See HPI : Denies dysuria or hematuria Musculoskeletal: See HPI Integument: Denies rash or other skin lesions Neurologic: Denies headache, focal weakness or sensory changes Psychiatric: Denies depression or anxiety (CHRISTOPHER DOSHI) Current Medications: Current Meds: Current Medications Medications (Trade) Dose Ordered Sig/Ifrah Start Time Stop Time Status Last Admin Dose Admin Acetaminophen (Tylenol) 650 mg 1X ONCE 09/01/21 18:30 09/01/21 18:31 DC 09/01/21 18:46 650 MG (CHRISTOPHER DOSHI) Allergies: Allergies: Allergies Coded Allergies Type Severity Reaction Last Updated Verified aspirin Allergy Severe SWELL 09/01/21 Yes ibuprofen Allergy Severe SWELL 09/01/21 Yes ketorolac Allergy Severe SWELL 09/01/21 Yes naproxen Allergy Severe SWELL 09/01/21 Yes strawberry Allergy Severe 09/01/21 Yes fentanyl Allergy Intermediate itching 09/01/21 Yes kiwi Allergy Intermediate Itching 09/01/21 Yes (CHRISTOPHER DOSHI) Physical Exam: PE: Constitutional: Well developed, well nourished, no acute distress, non-toxic appearance. Cardiovascular: Heart rate regular rhythm, no murmur. Lungs & Thorax: Bilateral breath sounds clear to auscultation. No chest wall tenderness. Skin: Warm, dry, no erythema, no rash. Extremities: Left shoulder range of motion intact, however painful with flexion and extension in particular. Extremities otherwise no tenderness, no cyanosis, no clubbing, ROM intact, no edema. Neurologic: Alert and oriented x3, normal motor function, normal sensory function, no focal deficits noted. Psychologic: Affect normal, judgement normal, mood normal. (CHRISTOPHER DOSHI) Current Patient Data: Labs: Laboratory Tests Test 09/01/21 18:39 White Blood Count 7.6 x10^3/uL (4.0-11.0) Red Blood Count 4.01 x10^6/uL (3.50-5.40) Hemoglobin 13.0 g/dL (12.0-15.5) Hematocrit 37.7 % (36.0-47.0) Mean Corpuscular Volume 94 fL (79-100) Mean Corpuscular Hemoglobin 32 pg (25-35) Mean Corpuscular Hemoglobin Concent 34 g/dL (31-37) Red Cell Distribution Width 13.8 % (11.5-14.5) Platelet Count 189 x10^3/uL (140-400) Neutrophils (%) (Auto) 52 % (31-73) Lymphocytes (%) (Auto) 39 % (24-48) Monocytes (%) (Auto) 7 % (0-9) Eosinophils (%) (Auto) 2 % (0-3) Basophils (%) (Auto) 1 % (0-3) Neutrophils # (Auto) 3.9 x10^3uL (1.8-7.7) Lymphocytes # (Auto) 2.9 x10^3/uL (1.0-4.8) Monocytes # (Auto) 0.5 x10^3/uL (0.0-1.1) Eosinophils # (Auto) 0.1 x10^3/uL (0.0-0.7) Basophils # (Auto) 0.1 x10^3/uL (0.0-0.2) Sodium Level 138 mmol/L (136-145) Potassium Level 3.8 mmol/L (3.5-5.1) Chloride Level 100 mmol/L (98-107) Carbon Dioxide Level 27 mmol/L (21-32) Anion Gap 11 (6-14) Blood Urea Nitrogen 5 mg/dL (7-20) Creatinine 0.7 mg/dL (0.6-1.0) Estimated GFR (Cockcroft-Gault) 95.8 Glucose Level 234 mg/dL (70-99) Calcium Level 8.9 mg/dL (8.5-10.1) Creatine Kinase 111 U/L (26-192) Creatine Kinase MB (Mass) 0.7 ng/mL (0.0-3.6) Creatine Kinase MB Relative Index 0.6 % (0-4) Troponin I Quantitative < 0.017 ng/mL (0-0.055) Vital Signs: VS - Last 72 Hours, by Label Date Time Temp Pulse Resp B/P (MAP) Pulse Ox O2 Delivery O2 Flow Rate FiO2 09/01/21 18:28 98.6 102 20 162/108 (126) 99 Room Air Vital Signs Date Time Temp Pulse Resp B/P (MAP) Pulse Ox O2 Delivery O2 Flow Rate FiO2 09/01/21 18:28 98.6 102 20 162/108 (126) 99 Room Air (CHRISTOPHER DOSHI) EKG: EKG: EKG Interpreted by Dr. Esquivel: Regular rate 98 bpm and rhythm with no ectopic beats. No concerning ST-T wave changes. Regular QR interval. (CHRISTOPHER DOSHI) Heart Score: C/O Chest Pain: Yes HEART Score for Chest Pain: HEART Score for Chest Pain Response (Comments) Value History Slighlty/Non-Suspicious 0 ECG Normal 0 Age < 45 0 Risk Factors >3 Risk Factors or Hx CAD 2 Troponin < Normal Limit 0 Total 2 Risk Factors: Risk Factors: DM, HTN, HLD Risk Scores: Score 0 - 3: 2.5% MACE over next 6 weeks - Discharge Home (CHRISTOPHER DOSHI) Course & Med Decision Making: Course & Med Decision Making Pertinent Labs and Imaging studies reviewed. (See chart for details) Patient work-up will rule out cardiac etiology to current symptoms. EKG is reassuring. Currently awaiting lab work. Patient's work-up today is reassuring. On reevaluation, patient states she is feeling much better, and her blood pressure is now at 133/81. She does admit to having frequent problems regarding anxiety attacks. She is reassured today that her cardiac enzymes are not elevated, her electrolytes are within normal limits and that her EKG is not concerning. Patient will be discharged home, and understands she should follow-up both with her primary care and therapist regarding anxiety attacks. (CHRISTOPHER DOSHI) Dragon Disclaimer: Dragon Disclaimer: This electronic medical record was generated, in whole or in part, using a voice recognition dictation system. (CHRISTOPHER DOSHI) Departure Departure: Impression: Primary Impression: Anxiety attack Additional Impression: Left shoulder pain Qualified Codes: M25.512 - Pain in left shoulder Disposition: HOME / SELF CARE / HOMELESS Condition: STABLE Referrals: SHANEKA LEE (PCP) Patient Instructions: Anxiety and Panic Attacks, [id number], Shoulder Pain, [id number], Shoulder, Range of Motion Exercises Additional Instructions: Your work-up today was reassuring that your symptoms were not related to heart damage. You may continue to take Tylenol as needed for shoulder discomfort. Please return to the emergency department if your pain worsens or if you develop new symptoms. Attending Signature Attending Signature I have participated in the care of this patient and I have reviewed and agree with all pertinent clinical information above including history, exam, and recommendations. (JORGE LUIS ESQUIVEL MD) CHRISTOPHER DOSHI Sep 01, 2021 19:02 JORGE LUIS ESQUIVEL MD Sep 05, 2021 18:53
[2021-09-01 19:06] LABS: BASO # 0.1 x10^3/uL (0.0-0.2); BASO % 1 % (0-3); EOS # 0.1 x10^3/uL (0.0-0.7); EOS % 2 % (0-3); HEMATOCRIT 37.7 % (36.0-47.0); LYMPH # 2.9 x10^3/uL (1.0-4.8); LYMPH % 39 % (24-48); MEAN CORPUSCULAR HEMOGLOBIN 32 pg (25-35); MEAN CORPUSCULAR HGB CONC 34 g/dL (31-37); MEAN CORPUSCULAR VOLUME 94 fL (79-100); MONO # 0.5 x10^3/uL (0.0-1.1); MONO % 7 % (0-9); NEUT # 3.9 x10^3uL (1.8-7.7); NEUT % 52 % (31-73); PLATELET COUNT 189 x10^3/uL (140-400); RED BLOOD COUNT 4.01 x10^6/uL (3.50-5.40); RED CELL DISTRIBUTION WIDTH 13.8 % (11.5-14.5); WHITE BLOOD COUNT 7.6 x10^3/uL (4.0-11.0)
[2021-09-01 19:15] LABS: CALCIUM 8.9 mg/dL (8.5-10.1); CREATININE 0.7 mg/dL (0.6-1.0); GFR 95.8; POTASSIUM 3.8 mmol/L (3.5-5.1)
== END 2021-09-01 20:35 | disposition home or self-care (01) ==
LOC: ER 18:04
DX: F41.9 Anxiety disorder, unspecified (principal); I10 Essential (primary) hypertension; E11.9 Type 2 diabetes mellitus without complications; E78.5 Hyperlipidemia, unspecified; Z98.51 Tubal ligation status; Z88.6 Allergy status to analgesic agent
CPT/HCPCS: 36415; 80048; 82553; 84484; 85025; 93005; 99284-25

== ENCOUNTER → 2021-11-25 | Outpatient (CLI) | payer OTHER ==
[~2021-11-25] MED LIST changes: +DICY20TA PO; -DICY20TA3 PO
[2021-11-25 11:08] LABS: BASO # 0.1 x10^3/uL (0.0-0.2); BASO % 2 % (0-3); EOS # 0.1 x10^3/uL (0.0-0.7); EOS % 2 % (0-3); HEMATOCRIT 42.5 % (36.0-47.0); HEMOGLOBIN 14.3 g/dL (12.0-15.5); LYMPH # 2.5 x10^3/uL (1.0-4.8); LYMPH % 41 % (24-48); MEAN CORPUSCULAR HEMOGLOBIN 32 pg (25-35); MEAN CORPUSCULAR HGB CONC 34 g/dL (31-37); MEAN CORPUSCULAR VOLUME 94 fL (79-100); MONO # 0.4 x10^3/uL (0.0-1.1); MONO % 7 % (0-9); NEUT % 49 % (31-73); PLATELET COUNT 220 x10^3/uL (140-400); RED BLOOD COUNT 4.54 x10^6/uL (3.50-5.40); RED CELL DISTRIBUTION WIDTH 13.2 % (11.5-14.5); WHITE BLOOD COUNT 6.1 x10^3/uL (4.0-11.0)
[2021-11-25 11:25] LABS: ALBUMIN 3.8 g/dL (3.4-5.0); ALBUMIN/GLOBULIN RATIO 0.8 (1.0-1.7); ALK PHOS 97 U/L (46-116); ALT (SGPT) 95 U/L (14-59); ANION GAP 9 (6-14); AST (SGOT) 87 U/L (15-37); BLOOD UREA NITROGEN 8 mg/dL (7-20); BUN/CREATININE RATIO 10 (6-20); CALCIUM 9.3 mg/dL (8.5-10.1); CARBON DIOXIDE 27 mmol/L (21-32); CHLORIDE 104 mmol/L (98-107); CREATININE 0.8 mg/dL (0.6-1.0); GFR 82.1; GLUCOSE 165 mg/dL (70-99); POTASSIUM 3.8 mmol/L (3.5-5.1); SODIUM 140 mmol/L (136-145); TOTAL BILIRUBIN 0.2 mg/dL (0.2-1.0); TOTAL PROTEIN 8.3 g/dL (6.4-8.2)
[2021-11-25 11:27] LABS: VAL ACID 39 mcg/mL (50-100)
[2021-11-25 21:28] LABS: FREE T4 0.85 ng/dL (0.76-1.46); THYROID STIM HORMONE (TSH) 2.223 uIU/mL (0.358-3.740)
== END ==
LOC: LAB 10:21
PROVIDERS: ATTEND Physician Assistant
DX: F31.9 Bipolar disorder, unspecified (principal); Z79.899 Other long term (current) drug therapy
CPT/HCPCS: 36415; 80053; 80061; 80164; 83036; 84439; 84443; 84480; 85025